=== PATIENT | female | born 1955 | race Caucasian/White ===

== ENCOUNTER 2019-01-17 10:37 | Day surgery (SDC) | payer OTHER ==
[2019-01-17 10:58] VITALS: TEMP 98.4
[2019-01-17] MEDS ORDERED: LACTATED RINGERS 1,000 ML IV ONE ×2 (11:14)
[2019-01-17] MEDS ORDERED: LIDOCAINE 1% 20 ML VIAL (10MG/ML) FOR IV START INTRADERMA ONE (11:14)
[2019-01-17] MEDS ORDERED: PROPOFOL 10 MG/ML 20 ML VIAL IV ONE (11:39)
[2019-01-17 12:16] VITALS: RESP 16
--- NOTE | 2019-01-17 12:23 | P.PCN ---
Date of Procedure: 01/17/19 Procedure(s) Performed: Procedure: Incomplete colonoscopy. Preoperative diagnosis: Screening for neoplasia. Postoperative diagnosis: Significant diverticular disease and extremely poor preparation made it not possible to complete the examination safely proximal to the distal or mid transverse colon. Preparation: HalfLytely prep. Sedation: Was provided by anesthesia. Brief clinical history: The patient is 63-year-old female who is scheduled for this evaluation for screening for neoplasia. She had a prior exam at age 49. The patient had had nonspecific abdominal symptoms in the past. She has no bleeding or anemia. Procedure: With the patient on her left lateral decubitus position and after in formed consent and adequate sedation, the perianal area was inspected and it did not show any fissures or. There were no masses felt on digital rectal examination. The Olympus CFH 190L video colonoscope was then inserted in the rectum in the usual fashion and advanced. The preparation was poor and there was significant diverticular disease, but I was able to advance the endoscope to the transverse colon, possibly mid to distal transverse. I was not able to advance the endoscope safely proximal to that because of the significant diverticular disease and the poor preparation. In the areas examined, I did not see any polyps or tumors or any obvious diverticulitis or strictures. I retroflexed the endoscope in the rectum before the endoscope was withdrawn. The patient tolerated the procedure well. Plan: I summarized the findings to the patient. I would consider repeat exam after a two-day preparation. She will discuss that with you.
[2019-01-17 12:40] VITALS: BP 133/79; PULSE 70
== END 2019-01-17 13:10 | disposition home or self-care (01) ==
LOC: ORWHC2ENDO 10:37
DX: Z12.11 Encounter for screening for malignant neoplasm of colon (principal); K57.30 Diverticulosis of large intestine without perforation or abscess without bleeding; Z79.890 Hormone replacement therapy; Z85.72 Personal history of non-Hodgkin lymphomas
CPT/HCPCS: J2704; G0121; 45378

== ENCOUNTER 2021-10-08 09:26 | Inpatient (IN) | payer OTHER, MEDICARE ==
[2021-10-08] MEDS ORDERED: HYDROmorphone 0.5 MG/0.5 ML SYRINGE IVP STA (09:39)
[2021-10-08] MEDS ORDERED: HYDROmorphone 1 MG/ML 1 ML SYRINGE IVP STA (10:20)
[2021-10-08 10:35] LABS: INR 0.9 (<1.2); Partial Thromboplastin Time 23.6 sec (22.0-30.0)
[2021-10-08 10:39] LABS: Basophils % (A) 0 %; Eosinophils # (A) 0.1 k/uL (0-0.7); Eosinophils % (A) 1 %; HCT 42.8 % (34.0-46.0); Lymphocytes # (A) 1.2 k/uL (1.0-4.8); Lymphocytes % (A) 20 %; MCH 29.2 pg (25.0-35.0); MCHC 32.6 g/dL (31.0-37.0); MCV 89.6 fL (80.0-100.0); Mean Platelet Volume 7.6; Monocytes # (A) 0.3 k/uL (0-1.0); Monocytes % (A) 6 %; Neutrophils # (A) 4.2 k/uL (1.3-7.7); Neutrophils % (A) 71 %; Platelet Count 203 k/uL (150-450); RBC 4.77 m/uL (3.80-5.40); RDW 13.7 % (11.5-15.5)
[2021-10-08 10:56] LABS: ALT 20 U/L (4-34); AST 26 U/L (14-36); African American GFR (CKD) >90 (>60 ml/min/1.73 sqM); Alkaline Phosphatase 71 U/L (38-126); Anion Gap 8 mmol/L; Blood Urea Nitrogen 14 mg/dL (7-17); Calcium 9.1 mg/dL (8.4-10.2); Carbon Dioxide 23 mmol/L (22-30); Chloride 108 mmol/L (98-107); Glucose 108 mg/dL (74-99); Non-African American GFR(CKD) >90 (>60 ml/min/1.73 sqM); Potassium 4.1 mmol/L (3.5-5.1); Sodium 139 mmol/L (137-145); Total Bilirubin 0.7 mg/dL (0.2-1.3); Total Protein 6.8 g/dL (6.3-8.2)
--- NOTE | 2021-10-08 10:58 | XR ---
EXAMINATION TYPE: XR chest 1V DATE OF EXAM: 10/08/2021 HISTORY: Shortness of breath. COMPARISON: None. TECHNIQUE: Single view of the chest is submitted. FINDINGS: Demonstrated are scattered senescent parenchymal change. There is no evidence for focal infiltrate. The heart is stable. Hilar and mediastinal structures are within normal limits. Degenerative changes are seen of the dorsal spine. IMPRESSION: 1. Chronic changes without evidence for acute pulmonary disease.
--- NOTE | 2021-10-08 10:59 | XR ---
EXAMINATION TYPE: XR Hip LT and AP Pelvis DATE OF EXAM: 10/08/2021 CLINICAL HISTORY: pain TECHNIQUE: AP and frogleg views of the left hip are obtained. Single view of the pelvis is also subm itted. COMPARISON: None. FINDINGS: Comminuted intratrochanteric fracture seen. Left hip joint space is well-preserved. No juan tional fractures seen within the [id number]. IMPRESSION: 1. Left-sided intratrochanteric fracture.
--- NOTE | 2021-10-08 11:08 | ED ---
General Adult HPI - General Chief complaint: Fall Stated complaint: Fall/Hip Pain Time Seen by Provider: 10/08/21 09:27 Source: patient, EMS, RN notes reviewed, old records reviewed Mode of arrival: EMS Limitations: no limitations - History of Present Illness Initial comments: 66-year-old female presents status post fall on the ice. Patient slipped fal ling onto her left hip. She had sudden and severe pain in this hip. She was unable to ambulate. There was no head neck or back trauma. No anticoagulation. Patient transported by EMS, she did receive IV fentanyl during transport which did minimally improve her pain. She has no chest pain or abdominal pain. - Related Data Home Medications Medication Instructions Recorded Confirmed Levothyroxine Sodium 100 mcg PO DAILY 01/17/19 10/08/21 Allergies Allergy/AdvReac Type Severity Reaction Status Date / Time No Known Allergies Allergy Verified 10/08/21 10:05 Review of Systems ROS Statement: Those systems with pertinent positive or pertinent negative responses have been documented in the HPI. ROS Other: All systems not noted in ROS Statement are negative. Past Medical History Past Medical History: Thyroid Disorder Additional Past Medical History / Comment(s): NON HODGKINS LYMPHOMA 2002, LOW BLOOD PRESSURE History of Any Multi-Drug Resistant Organisms: None Reported Additional Past Surgical History / Comment(s): FUAD TUMORS ON EAR DRUMS 1989, BREAST AUGMENTATION. Past Psychological History: No Psychological Hx Reported Smoking Status: Former smoker Past Alcohol Use History: None Reported Past Drug Use History: None Reported - Past Family History Mother Family Medical History: Cancer Father Family Medical History: Hypertension General Exam Limitations: no limitations General appearance: alert, in no apparent distress Head exam: Present: atraumatic, normocephalic Eye exam: Present: normal appearance, PERRL ENT exam: Present: normal exam Neck exam: Present: normal inspection, full ROM. Absent: tenderness Respiratory exam: Present: normal lung sounds bilaterally. Absent: respiratory distress, wheezes Cardiovascular Exam: Present: regular rate, normal rhythm GI/Abdominal exam: Present: soft. Absent: distended, tenderness, guarding Extremities exam: Present: tenderness (Decreased range of motion, tenderness to palpation left hip. Distal pulses are intact. No other tenderness on palpation of the bilateral lower extremities.). Absent: full ROM Neurological exam: Present: alert, oriented X3, CN II-XII intact Psychiatric exam: Present: normal affect, normal mood Skin exam: Present: warm, dry, intact. Absent: cyanosis, diaphoretic Course Vital Signs 10/08/21 10/08/21 09:32 09:34 Temperature 96.9 F L Pulse Rate 78 76 Respiratory 18 18 Rate Blood Pressure 116/79 116/79 O2 Sat by Pulse 97 96 Oximetry - Reevaluation(s) Reevaluation #1: 10/08/[address] Garza for orthopedic evaluation. Reevaluation #2: 10/08/21 11:08 Case discussed with tika Fajardo for advanced orthopedics. Medical Decision Making - Medical Decision Making 66-year-old female status post slip and fall with left hip pain. X-ray does show left IT fracture. Patient had requested advance orthopedics. I discussed case with nabor who is covering. They will admit with medicine on consult. EKG will be ordered for medical clearance. As well as chest x-ray, basic labs, and femur x-ray was requested. - Lab Data Result diagrams: 10/08/21 10:14 10/08/21 10:14 Lab Results 10/08/21 10/08/21 10/08/21 Range/Units 10:14 10:14 10:14 WBC 6.0 (3.8-10.6) k/uL RBC 4.77 (3.80-5.40) m/uL Hgb 14.0 (11.4-16.0) gm/dL Hct 42.8 (34.0-46.0) % MCV 89.6 (80.0-100.0) fL MCH 29.2 (25.0-35.0) pg MCHC 32.6 (31.0-37.0) g/dL RDW 13.7 (11.5-15.5) % Plt Count 203 (150-450) k/uL MPV 7.6 Neutrophils % 71 % Lymphocytes % 20 % Monocytes % 6 % Eosinophils % 1 % Basophils % 0 % Neutrophils # 4.2 (1.3-7.7) k/uL Lymphocytes # 1.2 (1.0-4.8) k/uL Monocytes # 0.3 (0-1.0) k/uL Eosinophils # 0.1 (0-0.7) k/uL Basophils # 0.0 (0-0.2) k/uL PT 10.0 (9.0-12.0) sec INR 0.9 (<1.2) APTT 23.6 (22.0-30.0) sec Sodium 139 (137-145) mmol/L Potassium 4.1 (3.5-5.1) mmol/L Chloride 108 H (98-107) mmol/L Carbon Dioxide 23 (22-30) mmol/L Anion Gap 8 mmol/L BUN 14 (7-17) mg/dL Creatinine 0.62 (0.52-1.04) mg/dL Est GFR (CKD-EPI)AfAm >90 (>60 ml/min/1.73 sqM) Est GFR (CKD-EPI)NonAf >90 (>60 ml/min/1.73 sqM) Glucose 108 H (74-99) mg/dL Calcium 9.1 (8.4-10.2) mg/dL Total Bilirubin 0.7 (0.2-1.3) mg/dL AST 26 (14-36) U/L ALT 20 (4-34) U/L Alkaline Phosphatase 71 (38-126) U/L Total Protein 6.8 (6.3-8.2) g/dL Albumin 4.0 (3.5-5.0) g/dL Disposition Clinical Impression: Fall, Fracture, intertrochanteric, left femur Disposition: ADMITTED IP TO THIS HOSP Condition: Stable Is patient prescribed a controlled substance at d/c from ED?: No Referrals: Vicky Mata MD [Primary Care Provider] - 1-2 days Decision to Admit Reason: Admit from EC Decision Date: 10/08/21 Decision Time: 11:26
[2021-10-08] MEDS ORDERED: HYDROmorphone 0.5 MG/0.5 ML SYRINGE IVP PRN (11:22)
[2021-10-08] MEDS ORDERED: NALOXONE 0.4 MG/ML 1 ML VIAL IV PRN (11:22)
[2021-10-08] MEDS: SODIUM CHLORIDE 0.9% 1,000 ML IV SCH (11:34)
--- NOTE | 2021-10-08 12:16 | XR ---
EXAMINATION TYPE: XR femur LT DATE OF EXAM: 10/08/2021 CLINICAL HISTORY: pain TECHNIQUE: Two views of the left femur are obtained. COMPARISON: None. FINDINGS: Intertrochanteric fracture noted. No additional fractures identified of the left femur. IMPRESSION: Intertrochanteric fracture left proximal femur.
--- NOTE | 2021-10-08 12:49 | P.HPOR ---
History of Present Illness H&P Date: 10/08/21 Chief Complaint: Left hip pain Patient is a 66-year-old female presenting to the emergency department this morning status post fall at home. Patient was walking outside and was about to take her dog to Park near her house when patient slipped on some ice in her driveway and fell landing on her left hip. Patient notes she had immediate left hip pain and was unable to get up off the ground. Patient notes that her neighbor found her about 15-20 minutes after patient had fallen and neighbor called EMS. EMS brought patient to hospital. Patient states she did not lose consciousness/hit her head. Patient denies any other injuries/areas of pain. Patient notes the only area of pain is the left hip as she points to the lateral portion left hip over the greater trochanter. Patient says there is some radiation pain down her leg. Patient rates pain as 10/10. Patient says she is not on any blood thinners. Patient denies any previous orthopedic surgical history. Patient does have a history of non-Hodgkin's lymphoma diagnosed in 2002. Patient denies chest pain, fever, shortness of breath, nausea, vomiting, change in vision, loss of bowel/bladder control. Past Medical History Past Medical History: Thyroid Disorder Additional Past Medical History / Comment(s): NON HODGKINS LYMPHOMA 2002, LOW BL OOD PRESSURE History of Any Multi-Drug Resistant Organisms: None Reported Additional Past Surgical History / Comment(s): FUAD TUMORS ON EAR DRUMS 1989, BREAST AUGMENTATION. Past Psychological History: No Psychological Hx Reported Smoking Status: Former smoker Past Alcohol Use History: None Reported Past Drug Use History: None Reported - Past Family History Mother Family Medical History: Cancer Father Family Medical History: Hypertension Medications and Allergies Home Medications Medication Instructions Recorded Confirmed Type Levothyroxine Sodium 100 mcg PO DAILY 01/17/19 10/08/21 History Allergies Allergy/AdvReac Type Severity Reaction Status Date / Time No Known Allergies Allergy Verified 10/08/21 10:05 Physical Examination Inspection: Left leg is shortened and externally rotated. There is no evidence of any ecchymosis, open fractures, nodules, significant erythema. Sensation: Sensation is equal, symmetric, bilaterally intact throughout the upper and lower extremities. Palpation: Significant tenderness to palpation along the left greater trochanter and lateral portion of the left hip. Nontender to palpation throughout rest exam Range of motion: Patient is able to plantarflex and dorsiflex left foot. Patient is unable flex/extend left hip and left knee due to severe pain. Full range of motion in bilateral upper extremities and right lower extremity Motor: Unable to perform exam on left leg due to patient's pain. 4+/5 in all other major motor groups Neurovascular status: Refill under 3 seconds bilaterally and digits of extremities. Radial pulses intact, 2+ bilaterally. DP pulses intact, bilaterally Special tests: Negative Homans bilaterally Results - Labs Labs: Abnormal Lab Results - Last 24 Hours (Table) 10/08/21 Range/Units 10:14 Chloride 108 H (98-107) mmol/L Glucose 108 H (74-99) mg/dL H & H 10/08/21 Range/Units 10:14 Hgb 14.0 (11.4-16.0) gm/dL Hct 42.8 (34.0-46.0) % Coagulation 10/08/21 Range/Units 10:14 INR 0.9 (<1.2) Result Diagrams: 10/08/21 10:14 10/08/21 10:14 Assessment and Plan Assessment: 1. Left hip intertrochanteric fracture status post fall Plan: 1. Left hip intertrochanteric fracture status post fall - patient seen at bedside this morning in significant amount of pain. Plan to [facility] patient [facility], , 10/09/2021 for left hip IM nail. Patient to remain nothing by mouth after midnight tonight. Hold thinners at this time. CBC; BMP; chest x-ray. Left femur x-ray negative for any femur fractures. Replicates findings opn left hip xray of left hip IT fracture 2. Appreciate medical management - patient does need medical clearance for surgery 3. Pain management - IV and oral pain meds 4. GI prophylaxis 5. DVT prophylaxis - with hold thinners at this time 6. PT/OT - nonweightbearing left leg Time with Patient: Less than 30
[2021-10-08] MEDS: HYDROmorphone 1 MG/ML 1 ML SYRINGE IVP PRN ×2 (14:23→21:28)
[2021-10-08] MEDS ORDERED: IPRATROPIUM-ALBUTEROL 3 ML NEB INHALATION PRN (14:26)
--- NOTE | 2021-10-08 14:26 | P.CONS ---
History of Present Illness - Reason for Consult Consult date: 10/08/21 medical clearance - Chief Complaint hip pain - History of Present Illness History of present illness 66 years old female patient of Dr. Velasco comes in after she slipped on ice while she was walking her dog. Patient landed on her left hip leading to significant pain. She was unable to get up off the ground. She was unattended for 15 minutes before she was seen by her neighbor who called EMS. Patien denies any chest pain, shortness of breath. She is pretty independent and lives by herself. She is recovering from a bronchitis that started in September and has been tested for COVID 5 times and was found to be negative. She denies any headache or dizziness. She denies losing consciousness or hitting her head. Patient has significant pain radiating down her leg. She denies any history of blood clots, DVT, PE, coronary artery disease previous stenting, stroke. Vitals were reviewed patient's afebrile pulse 78 respiratory rate 18 blood pressure 116/17 and oxygenating at 97% on room air labs are reviewed hemoglobin 14 platelet 203 INR 0.9 sodium 139 potassium 4.1 chloride 108 BUN 14 creatinine 0.6 glucose 108 COVID virus negative x-ray of the femur was obtained suggestive intertrochanteric fracture left proximal femur. Orthopedic surgeon Dr. Garza plans to take patient for left hip IM nail. EKG obtained normal sinus rhythm with no ST or T-wave changes ROS Constitutional: Denies chills, Denies fever, Denies lethargy, Denies malaise, Denies poor appetite, Denies weakness, Denies weight loss Eyes: denies decreased vision, denies diplopia, denies discharge, denies pain Ears: deny: decreased hearing Ears, nose, mouth and throat: Denies dental pain, Denies headache, Denies nasal discharge, Denies nose pain Cardiovascular: Denies chest pain, Denies decreased exercise tolerance, Denies edema, Denies high blood pressure, Denies irregular heart beat, Denies palpitations, Denies paroxysmal nocturnal dyspnea, Denies rapid heart beat, Denies shortness of breath Respiratory: Denies congestion, Denies cough, Denies cough with sputum, Denies dyspnea, Denies home oxygen, Denies wheezing Gastrointestinal: Denies abdominal pain, Denies change in bowel habits, Denies coffee ground emesis, Denies early satiety, Denies excessive gas, Denies heartburn, Denies hematemesis, Denies hematochezia, Denies loss of appetite, Denies nausea, Denies vomiting Genitourinary: Denies dysuria, Denies flank pain, Denies kidney stones, Denies menorrhagia, Denies urgency, Denies urinary frequency Musculoskeletal: ndorses gait dysfunction, endorses limitation of motion, e ndorses morning stiffness, Denies muscle cramps Integumentary: Denies rash, Denies wounds, Denies brittle nails, Denies change in hair/nails, Denies darkening of skin Neurological: Denies balance difficulties, Denies change in speech, Denies double vision, Denies gait dysfunction, Denies loss of vision, Denies motor disturbance, Denies numbness, Denies paralysis, Denies paresthesias, Denies seizures Psychiatric: Denies anxiety, Denies depression Endocrine: Denies excessive sweating, Denies excessive thirst, Denies high blood sugars, Denies palpitations Hematologic/Lymphatic: Denies easy bruising, Denies lymphadenopathy Social history Nonsmoker nondrinker Lives by herself Family history Mother had breast cancer Sister had breast cancer past at age of 50 Another sister has hypertension No children Physical exam - Constitutional General appearance: cooperative, no acute distress, obese - EENT Eyes: anicteric sclerae, PERRLA, normal appearance ENT: hearing grossly normal - Neck Neck: no lymphadenopathy, normal ROM, no other, no rigidity, no stridor, no thyromegaly - Respiratory Respiratory: bilateral: CTA, negative: diminished, dullness, rales, rhonchi - Cardiovascular Rhythm: regular Heart sounds: normal: S1, S2 Abnormal Heart Sounds: no systolic murmur, no diastolic murmur, no rub, no S3 Gallop, no S4 Gallop, no click, no other - Gastrointestinal General gastrointestinal: normal bowel sounds, soft - Integumentary Integumentary: no rash - Neurologic Neurologic: CNII-XII intact - Musculoskeletal Musculoskeletal: Left leg shortened externally rotated multiple varicose veins noted bilateral lower extremity tender to palpate in the left greater trochanter lateral portion of the left hip. Patient able to move her foot freely back range of motion limited secondary to pain. Neurovascular status intact - Psychiatric Psychiatric: A&O x's 3, appropriate affect Assessment and plan #1 left intertrochanteric fracture. Pain control with Dilaudid 0.5 every 3 radha rs. PTOT consult. Patient has 3.9% risk to undergo sudden myocardial infarctions, cardiac arrest. EKG reviewed is normal sinus rhythm no ST or T- wave changes noted. Patient is medically cleared to undergo surgery. Keep patient nothing by mouth #2 hypothyroidism continue Synthyroid at 100 g by mouth daily #3 DVT prophylaxis hold blood thinners at this point. #4 GI prophylaxis with Pepcid 20 mg daily #5 code status full code Thank you for the consult and I'll be happy to assist in patient's medical condition while patient is here Past Medical History Past Medical History: Thyroid Disorder Additional Past Medical History / Comment(s): NON HODGKINS LYMPHOMA 2002, LOW BLOOD PRESSURE History of Any Multi-Drug Resistant Organisms: None Reported Additional Past Surgical History / Comment(s): FUAD TUMORS ON EAR DRUMS 1989, BREAST AUGMENTATION. Past Anesthesia/Blood Transfusion Reactions: No Reported Reaction Past Psychological History: No Psychological Hx Reported Smoking Status: Former smoker Past Alcohol Use History: None Reported Past Drug Use History: None Reported - Past Family History Mother Family Medical History: Cancer Father Family Medical History: Hypertension Medications and Allergies Home Medications Medication Instructions Recorded Confirmed Type Levothyroxine Sodium 100 mcg PO DAILY 01/17/19 10/08/21 History Allergies Allergy/AdvReac Type Severity Reaction Status Date / Time No Known Allergies Allergy Verified 10/08/21 10:05 Physical Exam Vitals: Vital Signs Temp Pulse Resp BP Pulse Ox 10/08/21 11:30 72 18 132/83 100 10/08/21 09:34 76 18 116/79 96 10/08/21 09:32 96.9 F L 78 18 116/79 97 Intake and Output 10/07/21 10/08/21 10/08/21 22:59 06:59 14:59 Other: Weight 86.636 kg Results CBC & Chem 7: 10/08/21 10:14 10/08/21 10:14 Labs: Abnormal Lab Results - Last 24 Hours (Table) 10/08/21 Range/Units 10:14 Chloride 108 H (98-107) mmol/L Glucose 108 H (74-99) mg/dL
[2021-10-08] MEDS: HYDROcodone/APAP 7.5-325MG 1 EACH TAB PO PRN (17:52)
[2021-10-08] MEDS: FAMOTIDINE 20 MG TAB PO SCH (17:52)
[2021-10-09] MEDS: HYDROmorphone 1 MG/ML 1 ML SYRINGE IVP PRN ×4 (01:45→22:38)
[2021-10-09] MEDS: SODIUM CHLORIDE 0.9% 1,000 ML IV SCH ×2 (01:55→11:47)
[2021-10-09] MEDS: LEVOTHYROXINE 100 MCG TAB PO SCH (04:46)
[2021-10-09] MEDS: HYDROcodone/APAP 7.5-325MG 1 EACH TAB PO PRN ×2 (07:38→19:38)
[2021-10-09] MEDS: FAMOTIDINE 20 MG TAB PO SCH (07:41)
[2021-10-09] MEDS ORDERED: IV FLUID CONTINUATION 1,000 ML IV ONE (12:22)
[2021-10-09] MEDS ORDERED: ONDANSETRON 4 MG/2 ML VIAL ONE (12:37)
[2021-10-09] MEDS ORDERED: ONDANSETRON 4 MG/2 ML VIAL IVP ONE (12:41)
[2021-10-09] MEDS ORDERED: DEXAMETHASONE SOD PHOSPHATE 4 MG/ML 1 ML VIAL IVP ONE (12:42)
[2021-10-09] MEDS ORDERED: KETAMINE 10 MG/ML 20 ML VIAL ONE (13:13)
[2021-10-09] MEDS ORDERED: fentaNYL (PF) 50 MCG/ML 2 ML AMP ONE (13:13)
[2021-10-09] MEDS ORDERED: PHENYLEPHRINE-0.9% NACL SYG 1,000 MCG/10 ML SYRINGE ONE (13:13)
[2021-10-09] MEDS ORDERED: MIDAZOLAM 2 MG/2 ML VIAL ONE (13:13)
[2021-10-09] MEDS ORDERED: ceFAZolin 1,000 MG VIAL IVPB ONE (13:18)
[2021-10-09] MEDS ORDERED: ceFAZolin 1,000 MG in SODIUM CHLORIDE 0.9% 1,000 ML IRRIGATION ONE (13:54)
--- NOTE | 2021-10-09 14:15 | P.PN ---
Subjective Progress Note Date: 10/09/21 History of present illness 66-year-old female patient of Dr. Velasco comes in after she slipped on ice while she was walking her dog. Patient landed on her left hip leading to significant pain. She was unable to get up off the ground. She was unattended for 15 minutes before she was seen by her neighbor who called EMS. Patien denies any chest pain, shortness of breath. She is pretty independent and lives by herself. She is recovering from a bronchitis that started in September and has been tested for COVID 5 times and was found to be negative. She denies any hea dache or dizziness. She denies losing consciousness or hitting her head. Patient has significant pain radiating down her leg. She denies any history of blood clots, DVT, PE, coronary artery disease previous stenting, stroke. Vitals were reviewed patient's afebrile pulse 78 respiratory rate 18 blood pressure 116/17 and oxygenating at 97% on room air labs are reviewed hemoglobin 14 platelet 203 INR 0.9 sodium 139 potassium 4.1 chloride 108 BUN 14 creatinine 0.6 glucose 108 COVID virus negative x-ray of the femur was obtained suggestive intertrochanteric fracture left proximal femur. Orthopedic surgeon Dr. Garza plans to take patient for left hip IM nail. EKG obtained normal sinus rhythm with no ST or T-wave changes 2/3: Patient is gone for surgical intervention. ROS Constitutional: Denies chills, Denies fever, Denies lethargy, Denies malaise, Denies poor appetite, Denies weakness, Denies weight loss Eyes: denies decreased vision, denies diplopia, denies discharge, denies pain Ears: deny: decreased hearing Ears, nose, mouth and throat: Denies dental pain, Denies headache, Denies nasal discharge, Denies nose pain Cardiovascular: Denies chest pain, Denies decreased exercise tolerance, Denies edema, Denies high blood pressure, Denies irregular heart beat, Denies palpitations, Denies paroxysmal nocturnal dyspnea, Denies rapid heart beat, Denies shortness of breath Respiratory: Denies congestion, Denies cough, Denies cough with sputum, Denies dyspnea, Denies home oxygen, Denies wheezing Gastrointestinal: Denies abdominal pain, Denies change in bowel habits, Denies coffee ground emesis, Denies early satiety, Denies excessive gas, Denies heartburn, Denies hematemesis, Denies hematochezia, Denies loss of appetite, Denies nausea, Denies vomiting Genitourinary: Denies dysuria, Denies flank pain, Denies kidney stones, Denies menorrhagia, Denies urgency, Denies urinary frequency Musculoskeletal: ndorses gait dysfunction, endorses limitation of motion, endorses morning stiffness, Denies muscle cramps Integumentary: Denies rash, Denies wounds, Denies brittle nails, Denies change in hair/nails, Denies darkening of skin Neurological: Denies balance difficulties, Denies change in speech, Denies double vision, Denies gait dysfunction, Denies loss of vision, Denies motor disturbance, Denies numbness, Denies paralysis, Denies paresthesias, Denies seizures Psychiatric: Denies anxiety, Denies depression Endocrine: Denies excessive sweating, Denies excessive thirst, Denies high blood sugars, Denies palpitations Hematologic/Lymphatic: Denies easy bruising, Denies lymphadenopathy Physical exam - Constitutional General appearance: cooperative, no acute distress, obese - EENT Eyes: anicteric sclerae, PERRLA, normal appearance ENT: hearing grossly normal - Neck Neck: no lymphadenopathy, normal ROM, no other, no rigidity, no stridor, no thyromegaly - Respiratory Respiratory: bilateral: CTA, negative: diminished, dullness, rales, rhonchi - Cardiovascular Rhythm: regular Heart sounds: normal: S1, S2 Abnormal Heart Sounds: no systolic murmur, no diastolic murmur, no rub, no S3 Gallop, no S4 Gallop, no click, no other - Gastrointestinal General gastrointestinal: normal bowel sounds, soft - Integumentary Integumentary: no rash - Neurologic Neurologic: CNII-XII intact - Musculoskeletal Musculoskeletal: Left leg shortened externally rotated multiple varicose veins noted bilateral lower extremity tender to palpate in the left greater trochanter lateral portion of the left hip. Patient able to move her foot freely back range of motion limited secondary to pain. Neurovascular status intact - Psychiatric Psychiatric: A&O x's 3, appropriate affect Assessment and plan #1 left intertrochanteric fracture. Pain control with Dilaudid 0.5 every 3 hours. PTOT consult. Patient has 3.9% risk to undergo sudden myocardial infarctions, cardiac arrest. EKG reviewed is normal sinus rhythm no ST or T- wave changes noted. Patient is medically cleared to undergo surgery. Keep patient nothing by mouth #2 hypothyroidism continue Synthyroid at 100 g by mouth daily #3 DVT prophylaxis hold blood thinners at this point. #4 GI prophylaxis with Pepcid 20 mg daily #5 code status full code Thank you for the consult and I'll be happy to assist in patient's medical condition while patient is here Discharge Plan Home Impression and plan of care have been directed as dictated by the signing physician. Madonna Moore nurse practitioner acting as scribe for signing physician. Objective - Vital Signs Vital signs: Vital Signs Temp 97.9 F 10/09/21 01:54 Pulse 71 10/09/21 01:54 Resp 16 10/09/21 01:54 BP 130/77 10/09/21 01:54 Pulse Ox 97 10/09/21 01:54 Intake & Output 10/08/21 10/09/21 10/09/21 18:59 06:59 18:59 Intake Total 1200 1290 Output Total 750 Balance 1200 540 Weight 86.636 kg Intake: Intake, IV Titration 600 750 Amount Sodium Chloride 0.9% 1, 600 750 000 ml @ 75 mls/hr IV . [id number] [facility] Rx#:[id number] Oral 600 540 Output: Urine 750 Other: Voiding Method Indwelling Catheter - Labs CBC & Chem 7: 10/08/21 10:14 10/08/21 10:14 Labs: Abnormal Lab Results - Last 24 Hours (Table) 10/08/21 Range/Units 10:14 Chloride 108 H (98-107) mmol/L Glucose 108 H (74-99) mg/dL
[2021-10-09] MEDS ORDERED: LACTATED RINGERS 1,000 ML IV ONE (14:33)
--- NOTE | 2021-10-09 14:42 | XR ---
EXAMINATION TYPE: XR Hip Complete LT, FL guidance operating room DATE OF EXAM: 10/09/2021 COMPARISON: NONE HISTORY: Left hip nailing, fracture Fluoroscopy support supplied to the referring clinician. See dictated report from orthopedic surgery , 2 intraoperative images document the procedure, 60 seconds fluoroscopy time
[2021-10-09] MEDS ORDERED: HYDROmorphone 0.2 MG/1 ML SYRINGE IVP PRN (14:44)
[2021-10-09] MEDS ORDERED: HYDROmorphone 1 MG/ML 1 ML SYRINGE IVP PRN (14:44)
[2021-10-09] MEDS ORDERED: NALOXONE 0.4 MG/ML 1 ML VIAL IV PRN (14:44)
[2021-10-09] MEDS ORDERED: HYDROcodone/APAP 10-325MG 1 EACH TAB PO PRN (14:44)
--- NOTE | 2021-10-09 14:51 | P.OP ---
Date of Procedure: 10/09/21 Preoperative Diagnosis: Displaced left 4 part intertrochanteric femur fracture Postoperative Diagnosis: Same Procedure(s) Performed: Trochanteric intramedullary nailing left intertrochanteric femur fracture Implants: Arthrex 130 degree/short/11 mm trochanteric nail Anesthesia: spinal Surgeon: Beau Martins [employer] Man #1: Scotty Portillo Estimated Blood Loss (ml): 50 Pathology: none sent Condition: stable Disposition: PACU Indications for Procedure: The patient's 66-year-old female presents after a slip and fall injuring her left hip. Upon evaluation she is noted of a displaced four-part left intertrochanteric femur fracture. She underwent preoperative medical evaluation/clearance. A discussion the risks and benefits of operative intervention was made with patient. She opted to proceed. Operative risks to include infection, neurovascular injury, development of blood clots, possible development of nonunion/malunion, possible hardware failure need for subsequent procedures was discussed. Informed consent was obtained. Operative Findings: As below Description of Procedure: The patient was brought to the operating room, and after induction of spinal anesthesia was positioned supine on the fracture table. Bony prominences were appropriately padded. The fracture was reduced with longitudinal traction and internal rotation of the left leg. This was verified on the AP and lateral views with fluoroscopy. The left lower extremity was then prepped and draped in normal fashion. An 8 cm incision was then made starting proximal to greater trochanter. Skin and subcu tissues were divided sharply. The gluteus fe fascia was split in line with the skin incision. Blunt dissection was then made down to the level the greater trochanter. With the aid of fluoroscopy Sharp awl was placed into the tip of the greater trochanter. An intramedullary guidewire was then inserted down the canal. The distal canal was reamed up to 12 mm. Good distal chatter was noted. The proximal femur was then reamed up to 16.5 mm to level of the lesser trochanter. This is verified with fluoroscopy. An 11 mm/130 degree short trochanteric nail was gently inserted over the guidewire. The guidewire was then removed. A threaded guidepin was then inserted with the aid of fluoroscopy into the centercentral portion of the femoral head and neck to within 5 mm the articular surface on the AP and lateral views. A triple reamer was used to a depth of 100 mm. A 100 mm compression screw was inserted. Again this is done with the aid of fluoroscopy and taken to within 5 mm the articular surface on the AP and lateral views. Traction was removed from the leg. Compression was then performed with the outrigger jig. The compression screw was then locked into the nail. The static distal locking screw was placed utilizing the alignment guide with the fluoroscopy. Final fluoroscopic view showed adequate reduction of the fracture and placement of the implant on the AP and lateral views. The wounds were irrigated normal saline. The fascia was closed with running 0 Vicryl suture. Subcu tissues were reapproximated with interrupted 2-0 Vicryl sutures. The skin was reapproximated with chris. Sterile dressing was applied. The patient was then awoken from sedation and transferred to the recovery room in fair condition. Blood loss was estimated 50 mL. No complications were incurred. Sponge and needle counts were correct at the end of the case. Scotty CLOUD assisted to the major components the case to include positioning, exposure, implantation, and closure.
[2021-10-09] MEDS: HYDROmorphone 0.2 MG/1 ML SYRINGE IVP PRN (17:15)
[2021-10-09 18:00] LABS: Basophils % (A) 0 %; Eosinophils % (A) 0 %; HCT 40.8 % (34.0-46.0); Hypochromasia Slight; Lymphocytes # (A) 0.8 k/uL (1.0-4.8); Lymphocytes % (A) 10 %; MCH 29.5 pg (25.0-35.0); MCHC 31.9 g/dL (31.0-37.0); MCV 92.3 fL (80.0-100.0); Mean Platelet Volume 7.7; Monocytes # (A) 0.3 k/uL (0-1.0); Monocytes % (A) 4 %; Neutrophils # (A) 6.8 k/uL (1.3-7.7); Neutrophils % (A) 84 %; Platelet Count 166 k/uL (150-450); RBC 4.42 m/uL (3.80-5.40); RDW 13.7 % (11.5-15.5); WBC 8.1 k/uL (3.8-10.6)
[2021-10-09] MEDS: SENNOSIDES-DOCUSATE SODIUM 1 EACH TAB PO SCH (19:38)
[2021-10-10] MEDS: SODIUM CHLORIDE 0.9% 1,000 ML IV SCH ×2 (01:08→19:33)
[2021-10-10] MEDS: HYDROcodone/APAP 7.5-325MG 1 EACH TAB PO PRN ×2 (01:08→07:23)
[2021-10-10] MEDS: HYDROmorphone 1 MG/ML 1 ML SYRINGE IVP PRN ×3 (04:37→22:58)
[2021-10-10] MEDS: LEVOTHYROXINE 100 MCG TAB PO SCH (05:33)
[2021-10-10] MEDS: ENOXAPARIN 30 MG/0.3 ML SYRINGE SQ SCH (07:19)
[2021-10-10] MEDS: FAMOTIDINE 20 MG TAB PO SCH (07:19)
[2021-10-10] MEDS: HYDROmorphone 0.2 MG/1 ML SYRINGE IVP PRN (11:19)
[2021-10-10 11:43] LABS: Appearance,Urine Clear (Clear); Bacteria,Urine Rare /hpf; Bilirubin,Urine Negative (Negative); Blood,Urine Large (Negative); Color,Urine Light Red; Glucose,Urine (UA) Negative (Negative); Hyaline Casts,Urine 5 /lpf (0-2); Ketones,Urine 1+ (Negative); Leukocyte Esterase,Urine Moderate (Negative); Mucus,Urine Many /hpf; Nitrite,Urine Negative (Negative); PH, Urine 5.5 (5.0-8.0); Protein,Urine 1+ (Negative); RBC,Urine >182 /hpf (0-5); Specific Gravity,Urine 1.028 (1.001-1.035); Squamous Epithelial Cell,Urine 1 /hpf (0-4); Urobilinogen,Urine <2.0 mg/dL (<2.0); WBC,Urine 48 /hpf (0-5)
[2021-10-10] MEDS: HYDROcodone/APAP 5-325MG 1 EACH TAB PO PRN (13:38)
--- NOTE | 2021-10-10 14:00 | P.PN ---
Subjective Progress Note Date: 10/10/21 History of present illness 66-year-old female patient of Dr. Velasco comes in after she slipped on ice while she was walking her dog. Patient landed on her left hip leading to significant pain. She was unable to get up off the ground. She was unattended for 15 minutes before she was seen by her neighbor who called EMS. Patien denies any chest pain, shortness of breath. She is pretty independent and lives by herself. She is recovering from a bronchitis that started in September and has been tested for COVID 5 times and was found to be negative. She denies any hea dache or dizziness. She denies losing consciousness or hitting her head. Patient has significant pain radiating down her leg. She denies any history of blood clots, DVT, PE, coronary artery disease previous stenting, stroke. Vitals were reviewed patient's afebrile pulse 78 respiratory rate 18 blood pressure 116/17 and oxygenating at 97% on room air labs are reviewed hemoglobin 14 platelet 203 INR 0.9 sodium 139 potassium 4.1 chloride 108 BUN 14 creatinine 0.6 glucose 108 COVID virus negative x-ray of the femur was obtained suggestive intertrochanteric fracture left proximal femur. Orthopedic surgeon Dr. Garza plans to take patient for left hip IM nail. EKG obtained normal sinus rhythm with no ST or T-wave changes 2/3: Patient is gone for surgical intervention. 2/4: Yesterday, patient underwent trochanteric IM nailing left intertrochanteric femur fracture with Dr. Martins.Patient is afebrile, heart rate 88, blood pressure 121/71, pulse ox 95% on 2 L nasal cannula. Patient is complaining of pain. She still has Clarke catheter in place which is draining clear tanika urine. Patient states that she is concerned about blood in her urine she was scheduled for renal CAT scan to be done as an outpatient on October 29. Patient is requesting that this be done now but explained to the patient that this would not be covered by her insurance during this hospitalization. We will however order a urinalysis to evaluate for hematuria. Patient is complaining of some lumbar discomfort but not flank discomfort. Patient still has Clarke catheter in place which we expect this will be discontinued today. Patient states that she talked to orthopedics about staying in the hospital until Wednesday. Discharge plan is [facility]. If patient is not discharged tomorrow, this would take place on Wednesday. ROS Constitutional: Denies chills, Denies fever, Denies lethargy, Denies malaise, Denies poor appetite, Denies weakness, Denies weight loss Eyes: denies decreased vision, denies diplopia, denies discharge, denies pain Ears: deny: decreased hearing Ears, nose, mouth and throat: Denies dental pain, Denies headache, Denies nasal discharge, Denies nose pain Cardiovascular: Denies chest pain, Denies decreased exercise tolerance, Denies edema, Denies high blood pressure, Denies irregular heart beat, Denies palpitations, Denies paroxysmal nocturnal dyspnea, Denies rapid heart beat, Denies shortness of breath Respiratory: Denies congestion, Denies cough, Denies cough with sputum, Denies dyspnea, Denies home oxygen, Denies wheezing Gastrointestinal: Denies abdominal pain, Denies change in bowel habits, Denies coffee ground emesis, Denies early satiety, Denies excessive gas, Denies heartburn, Denies hematemesis, Denies hematochezia, Denies loss of appetite, Denies nausea, Denies vomiting Genitourinary: Denies dysuria, Denies flank pain, Denies kidney stones, Denies menorrhagia, Denies urgency, Denies urinary frequency. Patient is concern for hematuria Musculoskeletal: Endorses gait dysfunction, endorses limitation of motion, endorses morning stiffness, Denies muscle cramps Integumentary: Denies rash, Denies wounds, Denies brittle nails, Denies change in hair/nails, Denies darkening of skin Neurological: Denies balance difficulties, Denies change in speech, Denies double vision, Denies gait dysfunction, Denies loss of vision, Denies motor di sturbance, Denies numbness, Denies paralysis, Denies paresthesias, Denies seizures Psychiatric: Denies anxiety, Denies depression Endocrine: Denies excessive sweating, Denies excessive thirst, Denies high blood sugars, Denies palpitations Hematologic/Lymphatic: Denies easy bruising, Denies lymphadenopathy Physical exam - Constitutional General appearance: cooperative, no acute distress, obese - EENT Eyes: anicteric sclerae, PERRLA, normal appearance ENT: hearing grossly normal - Neck Neck: no lymphadenopathy, normal ROM, no other, no rigidity, no stridor, no thyromegaly - Respiratory Respiratory: bilateral: CTA, negative: diminished, dullness, rales, rhonchi - Cardiovascular Rhythm: regular Heart sounds: normal: S1, S2 Abnormal Heart Sounds: no systolic murmur, no diastolic murmur, no rub, no S3 Gallop, no S4 Gallop, no click, no other - Gastrointestinal General gastrointestinal: normal bowel sounds, soft Clarke catheter draining clear tanika urine, no hematuria - Integumentary Integumentary: no rash - Neurologic Neurologic: CNII-XII intact - Musculoskeletal Musculoskeletal: multiple varicose veins noted bilateral lower extremity, small dressing in place to the left hip. Patient able to move her foot freely back range of motion limited secondary to pain. Neurovascular status intact - Psychiatric Psychiatric: A&O x's 3, appropriate affect Assessment and plan #1 left intertrochanteric fracture status post IM nailing 2/[address] Martins. Pain control with Dilaudid 0.5 every 3 hours. PTOT consult. Patient has 3.9% risk to undergo sudden myocardial infarctions, cardiac arrest. EKG reviewed is normal sinus rhythm no ST or T-wave changes noted. #2 hypothyroidism continue Synthyroid at 100 g by mouth daily #3 DVT prophylaxis hold blood thinners at this point. #4 GI prophylaxis with Pepcid 20 mg daily #5 patient concern for hematuria. Urinalysis ordered. code status full code Thank you for the consult and I'll be happy to assist in patient's medical condition while patient is here Discharge Plan Subacute rehab at [facility] Impression and plan of care have been directed as dictated by the signing physician. Madonna Moore nurse practitioner acting as scribe for signing kortney [place]. Objective - Vital Signs Vital signs: Vital Signs Temp 99.1 F 10/10/21 07:24 Pulse 88 10/10/21 07:24 Resp 17 10/10/21 07:24 BP 121/71 10/10/21 07:24 Pulse Ox 95 10/10/21 08:29 Intake & Output 10/09/21 10/10/21 10/10/21 18:59 06:59 18:59 Intake Total 1287 1290 Output Total 650 450 Balance 637 840 Weight 86.636 kg Intake: IV 1051 Intake, IV Titration 750 Amount Sodium Chloride 0.9% 1, 750 000 ml @ 75 mls/hr IV . [id number] [facility] Rx#:[id number] Oral 236 540 Output: Urine 600 450 Estimated Blood Loss 50 Other: Voiding Method Indwelling Catheter Indwelling Catheter # Bowel Movements 0 - Labs CBC & Chem 7: 10/09/21 17:07 10/08/21 10:14 Labs: Abnormal Lab Results - Last 24 Hours (Table) 10/09/21 Range/Units 17:07 Lymphocytes # 0.8 L (1.0-4.8) k/uL
--- NOTE | 2021-10-10 16:21 | P.PN ---
Subjective Progress Note Date: 10/10/21 Principal diagnosis: Left hip intertrochanteric fracture status post fall Patient seen at bedside this morning resting comfortably sitting up in chair. Patient states she did get up at bedside and walk to the chair using walker. Patient says she is having some pain in her hip mostly right over incisions. Patient says she hasn't had bowel movement yet, however, patient says she has been passing gas. Patient says she has been using incentive spirometer. Patient denies chest pain, fever, shortness breath, nausea, vomiting, change in vision, loss of bladder control. Objective - Vital Signs Vital signs: Vital Signs Temp 99.1 F 10/10/21 07:24 Pulse 88 10/10/21 07:24 Resp 17 10/10/21 07:24 BP 121/71 10/10/21 07:24 Pulse Ox 95 10/10/21 08:29 Intake & Output 10/09/21 10/10/21 10/10/21 18:59 06:59 18:59 Intake Total 1287 1290 Output Total 650 450 Balance 637 840 Weight 86.636 kg Intake: IV 1051 Intake, IV Titration 750 Amount Sodium Chloride 0.9% 1, 750 000 ml @ 75 mls/hr IV . [id number] [facility] Rx#:[id number] Oral 236 540 Output: Urine 600 450 Estimated Blood Loss 50 Other: Voiding Method Indwelling Catheter Indwelling Catheter Indwelling Catheter # Bowel Movements 0 - Exam Left hip: Incision is clean, dry, and intact. The silver foam dressing is in good condition. There is minimal soft tissue swelling and ecchymosis surrounding the medial and lateral aspects of the incision. Calf is soft, no tenderness with palpation. Plantar flexion, dorsiflexion, EHL, FHL are intact. Sensory exam to light touch throughout the extremity is intact, dorsal pedis pulses 2+. - Labs CBC & Chem 7: 10/09/21 17:07 10/08/21 10:14 Labs: Abnormal Lab Results - Last 24 Hours (Table) 10/09/21 10/10/21 Range/Units 17:07 11:00 Lymphocytes # 0.8 L (1.0-4.8) k/uL Urine Protein 1+ H (Negative) Urine Ketones 1+ H (Negative) Urine Blood Large H (Negative) Ur Leukocyte Esterase Moderate H (Negative) Urine RBC >182 H (0-5) /hpf Urine WBC 48 H (0-5) /hpf Urine Bacteria Rare H (None) /hpf Hyaline Casts 5 H (0-2) /lpf Urine Mucus Many H (None) /hpf Assessment and Plan Assessment: 1. Left hip intertrochanteric fracture status post fall Postoperative day 1 status post left hip IT fracture Plan: 1. Left hip intertrochanteric fracture status post fall - left hip IM nail surgery performed yesterday, , 10/09/2021. Patient stable at bedside this morning. Plan to discharge to [facility] on Wednesday, Wednesday10/13/2021 2. Appreciate medical management 3. Pain management - [place] and Dilaudid 4. GI prophylaxis - senna 5. DVT prophylaxis - Lovenox 6. PT/OT - weightbearing as tolerated with walker 7. Encourage incentive spirometer use 8. Discharge planning - plan discharge to subacute rehab on 10/13/2021 Time with Patient: Less than 30
[2021-10-10] MEDS: SENNOSIDES-DOCUSATE SODIUM 1 EACH TAB PO SCH (20:55)
[2021-10-11] MEDS: HYDROcodone/APAP 5-325MG 1 EACH TAB PO PRN ×3 (02:06→22:04)
[2021-10-11] MEDS: LEVOTHYROXINE 100 MCG TAB PO SCH (06:25)
[2021-10-11] MEDS: ENOXAPARIN 30 MG/0.3 ML SYRINGE SQ SCH (09:06)
[2021-10-11] MEDS: FAMOTIDINE 20 MG TAB PO SCH (09:06)
[2021-10-11] MEDS: SODIUM CHLORIDE 0.9% 1,000 ML IV SCH ×2 (09:06→22:15)
--- NOTE | 2021-10-11 10:26 | P.PN ---
Subjective Progress Note Date: 10/11/21 Principal diagnosis: Left hip intertrochanteric fracture status post fall Patient seen at bedside this morning resting comfortably lying semirecumbent in bed. Patient seems somewhat sleepy this morning. Patient states she did get up at bedside yesterday and walk to the chair using walker. Patient says she is having some pain in her hip mostly right over incisions. Patient says she has a difficult time moving her left leg without assistance. Patient says she hasn't had bowel movement yet, however, patient says she has been passing gas. Patient says she has been using incentive spirometer. Patient denies chest pain, fever, shortness breath, nausea, vomiting, change in vision, loss of bladder control. Objective - Vital Signs Vital signs: Vital Signs Temp 98.7 F 10/11/21 07:18 Pulse 94 10/11/21 07:18 Resp 20 10/11/21 07:18 BP 132/70 10/11/21 07:18 Pulse Ox 93 L 10/11/21 07:18 Intake & Output 10/10/21 10/11/21 10/11/21 18:59 06:59 18:59 Output Total 900 850 Balance -900 -850 Output: Urine 900 850 Uretheral (Clarke) 350 Other: Voiding Method Indwelling Catheter Indwelling Catheter # Bowel Movements 0 0 - Exam Left hip: Incision is clean, dry, and intact. The silver foam dressing is in good condition. There is minimal soft tissue swelling and ecchymosis surrounding the medial and lateral aspects of the incision. Calf is soft, no tenderness with palpation. Plantar flexion, dorsiflexion, EHL, FHL are intact. Sensory exam to light touch throughout the extremity is intact, dorsal pedis pulses 2+. Silver foam dressings were replaced with new silver foam dressings over incisio ns. - Labs CBC & Chem 7: 10/09/21 17:07 10/08/21 10:14 Labs: Abnormal Lab Results - Last 24 Hours (Table) 10/10/21 Range/Units 11:00 Urine Protein 1+ H (Negative) Urine Ketones 1+ H (Negative) Urine Blood Large H (Negative) Ur Leukocyte Esterase Moderate H (Negative) Urine RBC >182 H (0-5) /hpf Urine WBC 48 H (0-5) /hpf Urine Bacteria Rare H (None) /hpf Hyaline Casts 5 H (0-2) /lpf Urine Mucus Many H (None) /hpf Assessment and Plan Assessment: 1. Left hip intertrochanteric fracture status post fall Postoperative day 2 status post left hip IT fracture Plan: 1. Left hip intertrochanteric fracture status post fall - left hip IM nail surgery performed , 10/09/2021. Patient stable at bedside this morning. Plan to discharge to [facility] on 10/13/2021 2. Appreciate medical management 3. Pain management - [place] and Dilaudid 4. GI prophylaxis - senna 5. DVT prophylaxis - Lovenox 6. PT/OT - weightbearing as tolerated with walker 7. Encourage incentive spirometer use 8. Discharge planning - plan discharge to subacute rehab on 10/13/2021 Time with Patient: Less than 30
--- NOTE | 2021-10-11 15:23 | P.PN ---
Subjective Progress Note Date: 10/11/21 History of present illness 66-year-old female patient of Dr. Velasco comes in after she slipped on ice while she was walking her dog. Patient landed on her left hip leading to significant pain. She was unable to get up off the ground. She was unattended for 15 minutes before she was seen by her neighbor who called EMS. Patien denies any chest pain, shortness of breath. She is pretty independent and lives by herself. She is recovering from a bronchitis that started in September and has been tested for COVID 5 times and was found to be negative. She denies any hea dache or dizziness. She denies losing consciousness or hitting her head. Patient has significant pain radiating down her leg. She denies any history of blood clots, DVT, PE, coronary artery disease previous stenting, stroke. Vitals were reviewed patient's afebrile pulse 78 respiratory rate 18 blood pressure 116/17 and oxygenating at 97% on room air labs are reviewed hemoglobin 14 platelet 203 INR 0.9 sodium 139 potassium 4.1 chloride 108 BUN 14 creatinine 0.6 glucose 108 COVID virus negative x-ray of the femur was obtained suggestive intertrochanteric fracture left proximal femur. Orthopedic surgeon Dr. Garza plans to take patient for left hip IM nail. EKG obtained normal sinus rhythm with no ST or T-wave changes 2/3: Patient is gone for surgical intervention. 2/4: Yesterday, patient underwent trochanteric IM nailing left intertrochanteric femur fracture with Dr. Martins.Patient is afebrile, heart rate 88, blood pressure 121/71, pulse ox 95% on 2 L nasal cannula. Patient is complaining of pain. She still has Clarke catheter in place which is draining clear tanika urine. Patient states that she is concerned about blood in her urine she was scheduled for renal CAT scan to be done as an outpatient on October 29. Patient is requesting that this be done now but explained to the patient that this would not be covered by her insurance during this hospitalization. We will however order a urinalysis to evaluate for hematuria. Patient is complaining of some lumbar discomfort but not flank discomfort. Patient still has Clarke catheter in place which we expect this will be discontinued today. Patient states that she talked to orthopedics about staying in the hospital until Wednesday. Discharge plan is [facility]. If patient is not discharged tomorrow, this would take place on Wednesday. 2/ patient complained of hematuria and has a computed tomography scan ordered as outpatient. Urinalysis ordered patient was noted to have UTI. Urinalysis to be sent for culture. Rocephin initiated 1 g every 24 hours patient likely had urine infection prior to getting an admission. Clarke catheter will be discontinued. ROS Constitutional: Denies chills, Denies fever, Denies lethargy, Denies malaise, Denies poor appetite, Denies weakness, Denies weight loss Eyes: denies decreased vision, denies diplopia, denies discharge, denies pain Ears: deny: decreased hearing Ears, nose, mouth and throat: Denies dental pain, Denies headache, Denies nasal discharge, Denies nose pain Cardiovascular: Denies chest pain, Denies decreased exercise tolerance, Denies edema, Denies high blood pressure, Denies irregular heart beat, Denies palpitations, Denies paroxysmal nocturnal dyspnea, Denies rapid heart beat, Denies shortness of breath Respiratory: Denies congestion, Denies cough, Denies cough with sputum, Denies dyspnea, Denies home oxygen, Denies wheezing Gastrointestinal: Denies abdominal pain, Denies change in bowel habits, Denies coffee ground emesis, Denies early satiety, Denies excessive gas, Denies heartburn, Denies hematemesis, Denies hematochezia, Denies loss of appetite, Denies nausea, Denies vomiting Genitourinary: Denies dysuria, Denies flank pain, Denies kidney stones, Denies menorrhagia, Denies urgency, Denies urinary frequency. Patient is concern for hematuria Musculoskeletal: Endorses gait dysfunction, endorses limitation of motion, endorses morning stiffness, Denies muscle cramps Integumentary: Denies rash, Denies wounds, Denies brittle nails, Denies change in hair/nails, Denies darkening of skin Neurological: Denies balance difficulties, Denies change in speech, Denies double vision, Denies gait dysfunction, Denies loss of vision, Denies motor disturbance, Denies numbness, Denies paralysis, Denies paresthesias, Denies s eizures Psychiatric: Denies anxiety, Denies depression Endocrine: Denies excessive sweating, Denies excessive thirst, Denies high blood sugars, Denies palpitations Hematologic/Lymphatic: Denies easy bruising, Denies lymphadenopathy Physical exam - Constitutional General appearance: cooperative, no acute distress, obese - EENT Eyes: anicteric sclerae, PERRLA, normal appearance ENT: hearing grossly normal - Neck Neck: no lymphadenopathy, normal ROM, no other, no rigidity, no stridor, no thyromegaly - Respiratory Respiratory: bilateral: CTA, negative: diminished, dullness, rales, rhonchi - Cardiovascular Rhythm: regular Heart sounds: normal: S1, S2 Abnormal Heart Sounds: no systolic murmur, no diastolic murmur, no rub, no S3 Gallop, no S4 Gallop, no click, no other - Gastrointestinal General gastrointestinal: normal bowel sounds, soft Clarke catheter draining clear tanika urine, no hematuria - Integumentary Integumentary: no rash - Neurologic Neurologic: CNII-XII intact - Musculoskeletal Musculoskeletal: multiple varicose veins noted bilateral lower extremity, small dressing in place to the left hip. Patient able to move her foot freely back range of motion limited secondary to pain. Neurovascular status intact - Psychiatric Psychiatric: A&O x's 3, appropriate affect Assessment and plan #1 left intertrochanteric fracture status post IM nailing 2/[address] Martins. Pain control with Dilaudid 0.5 every 3 hours. PTOT consult. Patient will benefit from inpatient versus subacute rehab #2 hypothyroidism continue Synthyroid at 100 g by mouth daily #3 hematuria present prior to admission with acute UTI Rocephin initiated at 1 g every 24 hours #4 GI prophylaxis with Pepcid 20 mg daily #5 DVT prophylaxis with Lovenox 30 subcu daily code status full code Discharge Plan Subacute rehab at [facility] Objective - Vital Signs Vital signs: Vital Signs Temp 98.4 F 10/11/21 14:00 Pulse 90 10/11/21 14:00 Resp 16 10/11/21 14:00 BP 111/66 10/11/21 14:00 Pulse Ox 95 10/11/21 14:00 Intake & Output 10/10/21 10/11/21 10/11/21 18:59 06:59 18:59 Output Total 900 850 Balance -900 -850 Output: Urine 900 850 Uretheral (Clarke) 350 Other: Voiding Method Indwelling Catheter Indwelling Catheter Indwelling Catheter # Bowel Movements 0 0 - Labs CBC & Chem 7: 10/09/21 17:07 10/08/21 10:14
[2021-10-11 17:42] LABS: Basophils % (A) 0 %; Eosinophils # (A) 0.1 k/uL (0-0.7); Eosinophils % (A) 2 %; HCT 31.9 % (34.0-46.0); HGB 10.3 gm/dL (11.4-16.0); Lymphocytes # (A) 1.1 k/uL (1.0-4.8); Lymphocytes % (A) 15 %; MCHC 32.2 g/dL (31.0-37.0); MCV 90.1 fL (80.0-100.0); Mean Platelet Volume 7.9; Monocytes # (A) 0.7 k/uL (0-1.0); Monocytes % (A) 9 %; Neutrophils # (A) 5.5 k/uL (1.3-7.7); Neutrophils % (A) 73 %; Platelet Count 133 k/uL (150-450); RBC 3.54 m/uL (3.80-5.40); RDW 13.8 % (11.5-15.5); WBC 7.6 k/uL (3.8-10.6)
[2021-10-11] MEDS: HYDROmorphone 1 MG/ML 1 ML SYRINGE IVP PRN (17:48)
[2021-10-11] MEDS: SENNOSIDES-DOCUSATE SODIUM 1 EACH TAB PO SCH (22:04)
[2021-10-12] MEDS: HYDROcodone/APAP 5-325MG 1 EACH TAB PO PRN (04:38)
[2021-10-12] MEDS: LEVOTHYROXINE 100 MCG TAB PO SCH (05:33)
[2021-10-12] MEDS: FAMOTIDINE 20 MG TAB PO SCH (07:53)
[2021-10-12] MEDS: ENOXAPARIN 30 MG/0.3 ML SYRINGE SQ SCH (07:53)
[2021-10-12] MEDS ORDERED: LACTULOSE 20 GM/30 ML CUP PO ONE (08:38)
[2021-10-12] MEDS ORDERED: MAGNESIUM HYDROXIDE 2,400 MG/10 ML CUP PO PRN (08:39)
[2021-10-12] MEDS: HYDROcodone/APAP 7.5-325MG 1 EACH TAB PO PRN ×2 (10:50→18:09)
[2021-10-12] MEDS: SODIUM CHLORIDE 0.9% 1,000 ML IV SCH (10:52)
--- NOTE | 2021-10-12 11:29 | P.PN ---
Subjective Progress Note Date: 10/12/21 Principal diagnosis: Left hip intertrochanteric fracture status post fall Patient seen at bedside this morning resting comfortably lying semirecumbent in bed. Patient seems somewhat sleepy this morning. Patient states she did get up at bedside yesterday and walk to the chair using walker. Patient says she is having some pain in her hip mostly right over incisions. Patient says she has a difficult time moving her left leg without assistance. Patient says she hasn't had bowel movement yet, however, patient says she has been passing gas. Patient says she has been using incentive spirometer. Patient denies chest pain, fever, shortness breath, nausea, vomiting, change in vision, loss of bladder control. Objective - Vital Signs Vital signs: Vital Signs Temp 98.3 F 10/12/21 07:37 Pulse 93 10/12/21 07:37 Resp 18 10/12/21 02:54 BP 110/65 10/12/21 07:37 Pulse Ox 95 10/12/21 07:37 Intake & Output 10/11/21 10/12/21 10/12/21 18:59 06:59 18:59 Intake Total 900 1800 Output Total 100 600 Balance 800 1200 Intake: IV 900 900 Sodium Chloride 0.9% 1, 900 900 000 ml @ 75 mls/hr IV . [id number] Rx#:[id number] Oral 900 Output: Urine 100 600 Uretheral (Clarke) 100 Other: Voiding Method Indwelling Catheter - Exam Left hip: Incision is clean, dry, and intact. The silver foam dressing is in good condition. There is minimal soft tissue swelling and ecchymosis surrounding the medial and lateral aspects of the incision. Calf is soft, no tenderness with palpation. Plantar flexion, dorsiflexion, EHL, FHL are intact. Sensory exam to light touch throughout the extremity is intact, dorsal pedis pulses 2+. - Labs CBC & Chem 7: 10/11/21 17:21 10/08/21 10:14 Labs: Abnormal Lab Results - Last 24 Hours (Table) 10/11/21 Range/Units 17:21 RBC 3.54 L (3.80-5.40) m/uL Hgb 10.3 L (11.4-16.0) gm/dL Hct 31.9 L (34.0-46.0) % Plt Count 133 L (150-450) k/uL Microbiology - Last 24 Hours (Table) 10/11/21 17:40 Urine Culture - Preliminary Urine,Catheterized Assessment and Plan Assessment: 1. Left hip intertrochanteric fracture status post fall Postoperative day 3 status post left hip IT fracture Plan: 1. Left hip intertrochanteric fracture status post fall - left hip IM nail surgery performed , 10/09/2021. Patient stable at bedside this morning. Plan to discharge to [facility] on 10/13/2021 2. Appreciate medical management 3. Pain management - [place] and Dilaudid 4. GI prophylaxis - senna 5. DVT prophylaxis - Lovenox 6. PT/OT - weightbearing as tolerated with walker 7. Encourage incentive spirometer use 8. Discharge planning - plan discharge to subacute rehab on 10/13/2021 Time with Patient: Less than 30
--- NOTE | 2021-10-12 14:30 | P.PN ---
Subjective Progress Note Date: 10/12/21 History of present illness 66-year-old female patient of Dr. Velasco comes in after she slipped on ice while she was walking her dog. Patient landed on her left hip leading to significant pain. She was unable to get up off the ground. She was unattended for 15 minutes before she was seen by her neighbor who called EMS. Patien denies any chest pain, shortness of breath. She is pretty independent and lives by herself. She is recovering from a bronchitis that started in September and has been tested for COVID 5 times and was found to be negative. She denies any hea dache or dizziness. She denies losing consciousness or hitting her head. Patient has significant pain radiating down her leg. She denies any history of blood clots, DVT, PE, coronary artery disease previous stenting, stroke. Vitals were reviewed patient's afebrile pulse 78 respiratory rate 18 blood pressure 116/17 and oxygenating at 97% on room air labs are reviewed hemoglobin 14 platelet 203 INR 0.9 sodium 139 potassium 4.1 chloride 108 BUN 14 creatinine 0.6 glucose 108 COVID virus negative x-ray of the femur was obtained suggestive intertrochanteric fracture left proximal femur. Orthopedic surgeon Dr. Garza plans to take patient for left hip IM nail. EKG obtained normal sinus rhythm with no ST or T-wave changes 2/3: Patient is gone for surgical intervention. 2/4: Yesterday, patient underwent trochanteric IM nailing left intertrochanteric femur fracture with Dr. Martins.Patient is afebrile, heart rate 88, blood pressure 121/71, pulse ox 95% on 2 L nasal cannula. Patient is complaining of pain. She still has Clarke catheter in place which is draining clear tanika urine. Patient states that she is concerned about blood in her urine she was scheduled for renal CAT scan to be done as an outpatient on October 29. Patient is requesting that this be done now but explained to the patient that this would not be covered by her insurance during this hospitalization. We will however order a urinalysis to evaluate for hematuria. Patient is complaining of some lumbar discomfort but not flank discomfort. Patient still has Clarke catheter in place which we expect this will be discontinued today. Patient states that she talked to orthopedics about staying in the hospital until Wednesday. Discharge plan is [facility]. If patient is not discharged tomorrow, this would take place on Wednesday. 10/11 patient complained of hematuria and has a computed tomography scan ordered as outpatient. Urinalysis ordered patient was noted to have UTI. Urinalysis to be sent for culture. Rocephin initiated 1 g every 24 hours patient likely had urine infection prior to getting an admission. Clarke catheter will be discontinued. 10/12 patient examined bedside. Urine appears dark. Patient denies any chest pain or abdominal pain. She has not had bowel movement for the past 5 days. He was given 1 dose of lactulose, senna with no bowel movement. Vitals otherwise stable. Hemoglobin has dropped to 10.3 from 13 urine culture is pending. Continue Rocephin for 3 days with plan to discontinue tomorrow. Patient is a possible discharge to rehab ROS Constitutional: Denies chills, Denies fever, Denies lethargy, Denies malaise, Denies poor appetite, Denies weakness, Denies weight loss Eyes: denies decreased vision, denies diplopia, denies discharge, denies pain Ears: deny: decreased hearing Ears, nose, mouth and throat: Denies dental pain, Denies headache, Denies nasal discharge, Denies nose pain Cardiovascular: Denies chest pain, Denies decreased exercise tolerance, Denies edema, Denies high blood pressure, Denies irregular heart beat, Denies palpitations, Denies paroxysmal nocturnal dyspnea, Denies rapid heart beat, Denies shortness of breath Respiratory: Denies congestion, Denies cough, Denies cough with sputum, Denies dyspnea, Denies home oxygen, Denies wheezing Gastrointestinal: Denies abdominal pain, Denies change in bowel habits, Denies coffee ground emesis, Denies early satiety, Denies excessive gas, Denies heartburn, Denies hematemesis, Denies hematochezia, Denies loss of appetite, Denies nausea, Denies vomiting Genitourinary: Denies dysuria, Denies flank pain, Denies kidney stones, Denies menorrhagia, Denies urgency, Denies urinary frequency. Patient is concern for hematuria Musculoskeletal: Endorses gait dysfunction, endorses limitation of motion, endorses morning stiffness, Denies muscle cramps Integumentary: Denies rash, Denies wounds, Denies brittle nails, Denies change in hair/nails, Denies darkening of skin Neurological: Denies balance difficulties, Denies change in speech, Denies double vision, Denies gait dysfunction, Denies loss of vision, Denies motor disturbance, Denies numbness, Denies paralysis, Denies paresthesias, Denies seizures Psychiatric: Denies anxiety, Denies depression Endocrine: Denies excessive sweating, Denies excessive thirst, Denies high blood sugars, Denies palpitations Hematologic/Lymphatic: Denies easy bruising, Denies lymphadenopathy Physical exam - Constitutional General appearance: cooperative, no acute distress, patient is sitting in the back - EENT Eyes: anicteric sclerae, PERRLA, normal appearance ENT: hearing grossly normal - Neck Neck: no lymphadenopathy, normal ROM, no other, no rigidity, no stridor, no thyromegaly - Respiratory Respiratory: bilateral: CTA, negative: diminished, dullness, rales, rhonchi - Cardiovascular Rhythm: regular Heart sounds: normal: S1, S2 Abnormal Heart Sounds: no systolic murmur, no diastolic murmur, no rub, no S3 Gallop, no S4 Gallop, no click, no other - Gastrointestinal General gastrointestinal: normal bowel sounds, soft Clarke catheter draining clear tanika urine, no hematuria - Integumentary Integumentary: no rash - Neurologic Neurologic: CNII-XII intact - Musculoskeletal Musculoskeletal: multiple varicose veins noted bilateral lower extremity, small dressing in place to the left hip. Range of motion improved Assessment and plan #1 left intertrochanteric fracture status post IM nailing 2/[address] Martins. Pain control with Dilaudid 0.5 every 3 hours. PTOT consult. and rehab on Wednesday #2 hypothyroidism continue Synthyroid at 100 g by mouth daily #3 hematuria present prior to admission with acute UTI Rocephin initiated at 1 g every 24 hours #4 GI prophylaxis with Pepcid 20 mg daily #5 DVT prophylaxis with Lovenox 30 subcu daily code status full code Discharge Plan Subacute rehab at [facility] Objective - Vital Signs Vital signs: Vital Signs Temp 98.3 F 10/12/21 07:37 Pulse 93 10/12/21 07:37 Resp 18 10/12/21 02:54 BP 110/65 10/12/21 07:37 Pulse Ox 95 10/12/21 07:37 Intake & Output 10/11/21 10/12/21 10/12/21 18:59 06:59 18:59 Intake Total 900 1800 Output Total 100 600 Balance 800 1200 Intake: IV 900 900 Sodium Chloride 0.9% 1, 900 900 000 ml @ 75 mls/hr IV . [id number] COUNTS INCLUDE 234 BEDS AT THE [facility] Rx#:[id number] Oral 900 Output: Urine 100 600 Uretheral (Clarke) 100 Other: Voiding Method Indwelling Catheter - Labs CBC & Chem 7: 10/11/21 17:21 10/08/21 10:14 Labs: Abnormal Lab Results - Last 24 Hours (Table) 10/11/21 Range/Units 17:21 RBC 3.54 L (3.80-5.40) m/uL Hgb 10.3 L (11.4-16.0) gm/dL Hct 31.9 L (34.0-46.0) % Plt Count 133 L (150-450) k/uL Microbiology - Last 24 Hours (Table) 10/11/21 17:40 Urine Culture - Preliminary Urine,Catheterized
[2021-10-12] MEDS: polyethylene glycoL 3350 17 GM POWD.PACK PO SCH (18:09)
[2021-10-12] MEDS: SENNOSIDES-DOCUSATE SODIUM 1 EACH TAB PO SCH (20:49)
[2021-10-13] MEDS: HYDROcodone/APAP 7.5-325MG 1 EACH TAB PO PRN (00:23)
[2021-10-13 04:07] VITALS: BP 113/68; PULSE 77; RESP 18; TEMP 98.2
[2021-10-13] MEDS: LEVOTHYROXINE 100 MCG TAB PO SCH (05:45)
[2021-10-13] MEDS: ENOXAPARIN 30 MG/0.3 ML SYRINGE SQ SCH (08:24)
[2021-10-13] MEDS: FAMOTIDINE 20 MG TAB PO SCH (08:24)
[2021-10-13] MEDS: polyethylene glycoL 3350 17 GM POWD.PACK PO SCH (08:24)
[2021-10-13] MEDS ORDERED: traMADol 50 MG TAB PO SCH (09:00)
[2021-10-13] MEDS ORDERED: ACETAMINOPHEN TAB 325 MG TAB PO PRN (09:07)
--- NOTE | 2021-10-13 10:06 | P.DS ---
Providers Date of admission: 10/08/21 11:23 Expected date of discharge: 10/13/21 Attending physician: Beau Martins Consults: 10/08/21 11:23 Consult Physician Routine Consulting Provider: Vicky Mata Consult Reason/Comments: Med management Do you want consulting provider notified?: Yes Primary care physician: Vicky Mata Hospital Course: Date of admission: 10/08/2021 Date of discharge: 10/13/2021 Admission diagnosis: Displaced left 4 part intertrochanteric femur fracture Discharge diagnosis: Same Attending physician: Dr. Martins Surgical procedures: Trochanteric intramedullary nailing left intertrochanteric femur fractu Brief history: Patient is a 66-year-old female with a history of displaced left 4 part intertrochanteric femur fracture status post fall. At this point patient has failed conservative treatment measures and has opted to proceed with a elective trochanteric intramedullary nailing left intertrochanteric femur fracture. Hospital course: Details of patient's surgery can be found in operative report. Patient tolerated the procedure well and was subsequently transported to orthopedic floor. Patient's orthopeidc and medical care was provided daily. Patient had daily laboratory tests performed for evaluation of overall blood counts. Patient had daily physical therapy to include strengthening range of motion as well as education with walker ambulation. Patient was treated with Lovenox for their postoperative DVT prophylaxis during their inpatient stay. Patient was noted to have a relatively uneventful postoperative course. Patient reported satisfactory pain control with oral pain medications by postoperative day 4. Patient showed satisfactory progress with physical therapy. Patient moved steadily through the program and had no difficulty meeting the goals by postoperative day 4. Given patient's otherwise satisfactory course and having met physical therapy goals, plan is to discharge patient to rehab on postopera tive day 4. Discharge condition/disposition: Patient will be discharged to rehab in stable condition. Discharge medications: Instructions are given on resumption of patient's normal daily medications per primary care recommendation, in addition patient will be prescribed tramadol 50 mg; Tylenol 650 mg; Lovenox; senna. Discharge instructions: 1. Wound care and infection precautions, keep incision dry and covered while showering, no lotions, creams, moisturizers. No soaking, tubs, pools, hottubs. Do not scrub over the incision. 2. Weight-bear as tolerated with walker / cane until follow-up. 3. Ice and elevate when necessary. Do not exceed 20 minutes per hour with ice pack.. 4. physical therapy 5. Pain meds and anticoagulants per prescription. 6. Pain medication has potential to cause constipation. Increase oral fluid and fiber intake. Contact primary care provider if you have not had a bowel movement within 48 hours after discharge 7. No anti-inflammatory medication until discussed at first post operative visit, this including Motrin, Aleve, Mobic, Diclofenac. 8. Follow up in office at 2 weeks postop with Hossein Saavedra PA-C / Scotty Portillo PA-C 9. Follow up with your primary care doctor 7-10 days after discharge. 10. Contact [facility] with any questions, . Keep incision clean, dry, intact. While showering, cover incision with Saran wrap. Follow up in office in 2 weeks Medications: tramadol 50 mg; Tylenol 650 mg; Lovenox; senna Assessment: Displaced left 4 part intertrochanteric femur fracture Procedures: Trochanteric intramedullary nailing left intertrochanteric femur fracture Patient Condition at Discharge: Good Plan - Discharge Summary Discharge Rx Participant: Yes New Discharge Prescriptions: New Enoxaparin [Lovenox] 30 mg SQ DAILY #21 each polyethylene glycoL 3350 [Miralax] 17 gm PO DAILY packet Famotidine [Pepcid] 20 mg PO DAILY tab Sennosides-Docusate Sodium [Senokot-S] 2 each PO HS tab Acetaminophen Tab [Tylenol] 650 mg PO Q6H #24 tab traMADol HCl [Ultram] 50 mg PO Q6H PRN #21 tab PRN Reason: Pain Magnesium Hydroxide [Milk of Magnesia Concentrate] 1,200 mg PO DAILY PRN ml PRN Reason: Constipation Continue Levothyroxine Sodium 100 mcg PO DAILY Discharge Medication List Levothyroxine Sodium 100 mcg PO DAILY 01/17/19 [History] Acetaminophen Tab [Tylenol] 650 mg PO Q6H #24 tab 10/13/21 [Rx] Enoxaparin [Lovenox] 30 mg SQ DAILY #21 each 10/13/21 [Rx] Famotidine [Pepcid] 20 mg PO DAILY tab 10/13/21 [Rx] Magnesium Hydroxide [Milk of Magnesia Concentrate] 1,200 mg PO DAILY PRN ml 10/13/21 [Rx] Sennosides-Docusate Sodium [Senokot-S] 2 each PO HS tab 10/13/21 [Rx] polyethylene glycoL 3350 [Miralax] 17 gm PO DAILY packet 10/13/21 [Rx] traMADol HCl [Ultram] 50 mg PO Q6H PRN #21 tab 10/13/21 [Rx] Follow up Appointment(s)/Referral(s): Vicky Mata MD [Primary Care Provider] - 1 Week (at [facility]) Scotty Portillo PAC [PHYSICIAN SEXUAL ASSAULT RESPONSE COORDINATOR] - 2 Weeks [facility], [NON-STAFF] - As Needed Activity/Diet/Wound Care/Special Instructions: Discharge instructions: 1. Wound care and infection precautions, keep incision dry and covered while showering, no lotions, creams, moisturizers. No soaking, tubs, pools, hottubs. Do not scrub over the incision. 2. Weight-bear as tolerated with walker / cane until follow-up. 3. Ice and elevate when necessary. Do not exceed 20 minutes per hour with ice pack.. 4. physical therapy 5. Pain meds and anticoagulants per prescription. 6. Pain medication has potential to cause constipation. Increase oral fluid and fiber intake. Contact primary care provider if you have not had a bowel movement within 48 hours after discharge 7. No anti-inflammatory medication until discussed at first post operative visit, this including Motrin, Aleve, Mobic, Diclofenac. 8. Follow up in office at 2 weeks postop with Hossein Saavedra PA-C / Scotty Portillo PA-C 9. Follow up with your primary care doctor 7-10 days after discharge. 10. Contact [facility] with any questions, . Keep incision clean, dry, intact. While showering, cover incision with Saran wrap. Follow up in office in 2 weeks Medications: tramadol 50 mg; Tylenol 650 mg; Lovenox; senna Discharge Disposition: TRANSFER TO SNF/ECF
--- NOTE | 2021-10-13 10:07 | P.PN ---
Subjective Progress Note Date: 10/13/21 Principal diagnosis: Left hip intertrochanteric fracture status post fall Patient seen at bedside this morning resting comfortably sitting up in chair at bedside. Patient states she did get up at bedside yesterday and walk to the chair using walker. Patient says she is having some pain in her hip mostly right over incisions. Patient says she has a difficult time moving her left leg without assistance. Patient says she hasn't had bowel movement yet, however, patient says she has been passing gas. Patient says she has been using incentive spirometer. Patient denies chest pain, fever, shortness breath, nausea, vomiting, change in vision, loss of bladder control. Objective - Vital Signs Vital signs: Vital Signs Temp 98.2 F 10/13/21 02:00 Pulse 77 10/13/21 08:15 Resp 18 10/13/21 08:15 BP 113/68 10/13/21 02:00 Pulse Ox 96 10/13/21 02:00 Intake & Output 10/12/21 10/13/21 10/13/21 18:59 06:59 18:59 Output Total 600 1250 Balance -600 -1250 Output: Urine 600 1250 Other: Voiding Method External Catheter Bedside Commode # Bowel Movements 0 - Exam Left hip: Incision is clean, dry, and intact. The silver foam dressing is in good condition. There is minimal soft tissue swelling and ecchymosis surrounding the medial and lateral aspects of the incision. Calf is soft, no tenderness with palpation. Plantar flexion, dorsiflexion, EHL, FHL are intact. Sensory exam to light touch throughout the extremity is intact, dorsal pedis pulses 2+. - Labs CBC & Chem 7: 10/11/21 17:21 10/08/21 10:14 Labs: Microbiology - Last 24 Hours (Table) 10/11/21 17:40 Urine Culture - Final Urine,Catheterized Assessment and Plan Assessment: 1. Left hip intertrochanteric fracture status post fall Postoperative day 4 status post left hip IT fracture Plan: 1. Left hip intertrochanteric fracture status post fall - left hip IM nail surgery performed , 10/10/2021. Patient stable at bedside this morning. Discharge to [facility] today, 10/13/2021 2. Appreciate medical management 3. Pain management - going to rehab with Tramadol and Tylenol 650 4. GI prophylaxis - senna 5. DVT prophylaxis - Lovenox 6. PT/OT - weightbearing as tolerated with walker 7. Encourage incentive spirometer use 8. Discharge planning - Discharge to subacute rehab today, 10/13/2021 Time with Patient: Less than 30
--- NOTE | 2021-10-13 13:57 | P.PN ---
Subjective Progress Note Date: 10/13/21 History of present illness 66-year-old female patient of Dr. Velasco comes in after she slipped on ice while she was walking her dog. Patient landed on her left hip leading to significant pain. She was unable to get up off the ground. She was unattended for 15 minutes before she was seen by her neighbor who called EMS. Patien denies any chest pain, shortness of breath. She is pretty independent and lives by herself. She is recovering from a bronchitis that started in September and has been tested for COVID 5 times and was found to be negative. She denies any hea dache or dizziness. She denies losing consciousness or hitting her head. Patient has significant pain radiating down her leg. She denies any history of blood clots, DVT, PE, coronary artery disease previous stenting, stroke. Vitals were reviewed patient's afebrile pulse 78 respiratory rate 18 blood pressure 116/17 and oxygenating at 97% on room air labs are reviewed hemoglobin 14 platelet 203 INR 0.9 sodium 139 potassium 4.1 chloride 108 BUN 14 creatinine 0.6 glucose 108 COVID virus negative x-ray of the femur was obtained suggestive intertrochanteric fracture left proximal femur. Orthopedic surgeon Dr. Garza plans to take patient for left hip IM nail. EKG obtained normal sinus rhythm with no ST or T-wave changes 2/3: Patient is gone for surgical intervention. 2/4: Yesterday, patient underwent trochanteric IM nailing left intertrochanteric femur fracture with Dr. Martins.Patient is afebrile, heart rate 88, blood pressure 121/71, pulse ox 95% on 2 L nasal cannula. Patient is complaining of pain. She still has Clarke catheter in place which is draining clear tanika urine. Patient states that she is concerned about blood in her urine she was scheduled for renal CAT scan to be done as an outpatient on October 29. Patient is requesting that this be done now but explained to the patient that this would not be covered by her insurance during this hospitalization. We will however order a urinalysis to evaluate for hematuria. Patient is complaining of some lumbar discomfort but not flank discomfort. Patient still has Clarke catheter in place which we expect this will be discontinued today. Patient states that she talked to orthopedics about staying in the hospital until Wednesday. Discharge plan is [facility]. If patient is not discharged tomorrow, this would take place on Wednesday. 10/11 patient complained of hematuria and has a computed tomography scan ordered as outpatient. Urinalysis ordered patient was noted to have UTI. Urinalysis to be sent for culture. Rocephin initiated 1 g every 24 hours patient likely had urine infection prior to getting an admission. Clarke catheter will be discontinued. 10/12 patient examined bedside. Urine appears dark. Patient denies any chest pain or abdominal pain. She has not had bowel movement for the past 5 days. He was given 1 dose of lactulose, senna with no bowel movement. Vitals otherwise stable. Hemoglobin has dropped to 10.3 from 13 urine culture is pending. Continue Rocephin for 3 days with plan to discontinue tomorrow. Patient is a possible discharge to rehab 10/13: Patient is complaining of significant constipation but would like to wait until she gets to the retirement to address. She is currently on Senokot and MiraLAX and milk of magnesia. Orthopedics is planning for discharge today to subacute rehab. Medication reconciliation has been reviewed and patient is cleared for discharge from medicine. Patient has been afebrile, heart rate 77, blood pressure 113/60, pulse ox 96% on 2 L nasal cannula. Urine culture was finalized with no growth after 18 hours. ROS Constitutional: Denies chills, Denies fever, Denies lethargy, Denies malaise, Denies poor appetite, Denies weakness, Denies weight loss Eyes: denies decreased vision, denies diplopia, denies discharge, denies pain Ears: deny: decreased hearing Ears, nose, mouth and throat: Denies dental pain, Denies headache, Denies nasal discharge, Denies nose pain Cardiovascular: Denies chest pain, Denies decreased exercise tolerance, Denies edema, Denies high blood pressure, Denies irregular heart beat, Denies palpitations, Denies paroxysmal nocturnal dyspnea, Denies rapid heart beat, Denies shortness of breath Respiratory: Denies congestion, Denies cough, Denies cough with sputum, Denies dyspnea, Denies home oxygen, Denies wheezing Gastrointestinal: Denies abdominal pain, Denies change in bowel habits, Denies coffee ground emesis, Denies early satiety, Denies excessive gas, Denies heartburn, Denies hematemesis, Denies hematochezia, Denies loss of appetite, Denies nausea, Denies vomiting Genitourinary: Denies dysuria, Denies flank pain, Denies kidney stones, Denies menorrhagia, Denies urgency, Denies urinary frequency. Patient is concerned for hematuria Musculoskeletal: Endorses gait dysfunction, endorses limitation of motion, endorses morning stiffness, Denies muscle cramps Integumentary: Denies rash, Denies wounds, Denies brittle nails, Denies change in hair/nails, Denies darkening of skin Neurological: Denies balance difficulties, Denies change in speech, Denies double vision, Denies gait dysfunction, Denies loss of vision, Denies motor disturbance, Denies numbness, Denies paralysis, Denies paresthesias, Denies seizures Psychiatric: Denies anxiety, Denies depression Endocrine: Denies excessive sweating, Denies excessive thirst, Denies high blood sugars, Denies palpitations Hematologic/Lymphatic: Denies easy bruising, Denies lymphadenopathy Physical exam - Constitutional General appearance: cooperative, no acute distress, patient is sitting in the back - EENT Eyes: anicteric sclerae, PERRLA, normal appearance ENT: hearing grossly normal - Neck Neck: no lymphadenopathy, normal ROM, no other, no rigidity, no stridor, no thyromegaly - Respiratory Respiratory: bilateral: CTA, negative: diminished, dullness, rales, rhonchi - Cardiovascular Rhythm: regular Heart sounds: normal: S1, S2 Abnormal Heart Sounds: no systolic murmur, no diastolic murmur, no rub, no S3 Gallop, no S4 Gallop, no click, no other - Gastrointestinal General gastrointestinal: normal bowel sounds, soft Clarke catheter draining clear tanika urine, no hematuria - Integumentary Integumentary: no rash - Neurologic Neurologic: CNII-XII intact - Musculoskeletal Musculoskeletal: multiple varicose veins noted bilateral lower extremity, small dressing in place to the left hip. Range of motion improved Assessment and plan #1 left intertrochanteric fracture status post IM nailing 2/[address] Martins. Pain control. PTOT consult. Plan is for discharge today. Medication reconciliation has been reviewed. #2 hypothyroidism continue Synthyroid at 100 g by mouth daily #3 hematuria present prior to admission with acute UTI has been ruled out. No need for further antibiotics. #4 GI prophylaxis with Pepcid 20 mg daily #5 DVT prophylaxis with Lovenox 30 subcu daily code status full code Discharge Plan Subacute rehab at [facility] Impression and plan of care have been directed as dictated by the signing physician. Madonna Moore nurse practitioner acting as scribe for signing physician. Objective - Vital Signs Vital signs: Vital Signs Temp 98.2 F 10/13/21 02:00 Pulse 77 10/13/21 02:00 Resp 18 10/13/21 02:00 BP 113/68 10/13/21 02:00 Pulse Ox 96 10/13/21 02:00 Intake & Output 10/12/21 10/13/21 10/13/21 18:59 06:59 18:59 Output Total 600 1250 Balance -600 -1250 Output: Urine 600 1250 Other: Voiding Method External Catheter # Bowel Movements 0 - Labs CBC & Chem 7: 10/11/21 17:21 10/08/21 10:14 Labs: Microbiology - Last 24 Hours (Table) 10/11/21 17:40 Urine Culture - Final Urine,Catheterized
== END 2021-10-13 14:36 | DRG 482 ==
LOC: EC 09:26 → 4SSUR 11:23
PROVIDERS: ADMIT Orthopaedic Surgery; ATTEND Orthopaedic Surgery
PROC: 0QS706Z Reposition Left Upper Femur with Intramedullary Internal Fixation Device, Open Approach (ICD-10-PCS; principal; 2021-10-09 13:00)
DX: S72.142A Displaced intertrochanteric fracture of left femur, initial encounter for closed fracture (principal); E03.9 Hypothyroidism, unspecified; Z20.822 Contact with and (suspected) exposure to COVID-19; R31.9 Hematuria, unspecified; I83.91 Asymptomatic varicose veins of right lower extremity; K59.00 Constipation, unspecified; Z79.890 Hormone replacement therapy; Z87.891 Personal history of nicotine dependence; Z85.72 Personal history of non-Hodgkin lymphomas; Z87.2 Personal history of diseases of the skin and subcutaneous tissue; Z86.69 Personal history of other diseases of the nervous system and sense organs; Z98.890 Other specified postprocedural states; W00.0XXA Fall on same level due to ice and snow, initial encounter; Y93.01 Activity, walking, marching and hiking; Y92.008 Other place in unspecified non-institutional (private) residence as the place of occurrence of the external cause; Z82.49 Family history of ischemic heart disease and other diseases of the circulatory system; Z80.3 Family history of malignant neoplasm of breast
CPT/HCPCS: 36415; 71045; 73502; 80053; 81001; 85025; 85610; 85730; 87086; 87635; 93005; 94760; 96374; 99285

== ENCOUNTER 2021-11-16 18:06 | Emergency (ER) | payer OTHER, MEDICARE ==
[2021-11-16 18:19] VITALS: BP 119/68; PULSE 104; RESP 18; TEMP 98.2
[2021-11-16] MEDS ORDERED: SODIUM CHLORIDE 0.9% 1,000 ML IV STA (18:32)
--- NOTE | 2021-11-16 18:39 | ED ---
General Adult HPI - General Chief complaint: Abdominal Pain Stated complaint: Constipation Time Seen by Provider: 11/16/21 18:25 Source: patient, RN notes reviewed Mode of arrival: wheelchair Limitations: no limitations - History of Present Illness Initial comments: This is a pleasant 66-year-old female who states that she had left hip fracture in early October and subsequently was sent to rehabilitation. Patient states that she was put on pain medicines for this. Mainly taking this but 3 days ago developed constipation. Patient states she has not had a good bowel movement in 3 days. She is had no nausea or vomiting but states she has not been eating because she was afraid that it would increase the intermittent abdominal cramping that she is having. Patient states she tried an enema last night and had very minimal return. Patient states that passing gas causes pain. Patient did use a suppository as well today. Patient has had no fever or chills. No nausea or vomiting. Patient has had a urinary tract infection since being in rehab. She states she's been on 3 weeks of antibiotics. No diarrhea. No fever. No shortness breath or chest pain. He also took [id number] laxative. No headache, no fever or chills, no changes in vision or hearing, no sore throat or difficulty with speech, no neck pain, no chest pain or shortness of breath, no nausea or vomiting, no changes in urination or bowel movements, no numbness or tingling, no extremity pain, no skin rashes or lesions. - Related Data Home Medications Medication Instructions Recorded Confirmed Levothyroxine Sodium 100 mcg PO DAILY 01/17/19 10/08/21 Previous Rx's Medication Instructions Recorded Acetaminophen Tab [Tylenol] 650 mg PO Q6H #24 tab 10/13/21 Enoxaparin [Lovenox] 30 mg SQ DAILY #21 each 10/13/21 Famotidine [Pepcid] 20 mg PO DAILY tab 10/13/21 Magnesium Hydroxide [Milk of 1,200 mg PO DAILY PRN ml 10/13/21 Magnesia Concentrate] Sennosides-Docusate Sodium 2 each PO HS tab 10/13/21 [Senokot-S] polyethylene glycoL 3350 [Miralax] 17 gm PO DAILY packet 10/13/21 traMADol HCl [Ultram] 50 mg PO Q6H PRN #21 tab 10/13/21 Docusate [Colace] 100 mg PO DAILY #30 capsule 11/16/21 Magnesium Citrate 0.5 bottle PO Q6H #296 ml 11/16/21 Allergies Allergy/AdvReac Type Severity Reaction Status Date / Time No Known Allergies Allergy Verified 10/09/21 12:35 Review of Systems ROS Statement: Those systems with pertinent positive or pertinent negative responses have been documented in the HPI. ROS Other: All systems not noted in ROS Statement are negative. Past Medical History Past Medical History: Thyroid Disorder Additional Past Medical History / Comment(s): NON HODGKINS LYMPHOMA 2002, LOW BLOOD PRESSURE History of Any Multi-Drug Resistant Organisms: None Reported Additional Past Surgical History / Comment(s): FUAD TUMORS ON EAR DRUMS 1989, BREAST AUGMENTATION. Past Anesthesia/Blood Transfusion Reactions: No Reported Reaction Past Psychological History: No Psychological Hx Reported Smoking Status: Former smoker Past Alcohol Use History: None Reported Past Drug Use History: None Reported - Past Family History Mother Family Medical History: Cancer Father Family Medical History: Hypertension General Exam - General Exam Comments Initial Comments: The parents 66-year-old female in no distress. Patient does not appear to be ill or toxic. Limitations: no limitations General appearance: alert, in no apparent distress Head exam: Present: atraumatic, normocephalic, normal inspection Eye exam: Present: normal appearance, PERRL, EOMI. Absent: scleral icterus, conjunctival injection, periorbital swelling ENT exam: Present: normal exam, mucous membranes moist Neck exam: Present: normal inspection, full ROM. Absent: tenderness, meningismus, lymphadenopathy Respiratory exam: Present: normal lung sounds bilaterally. Absent: respiratory distress, wheezes, rales, rhonchi, stridor Cardiovascular Exam: Present: regular rate, normal rhythm, normal heart sounds. Absent: systolic murmur, diastolic murmur, rubs, gallop, clicks GI/Abdominal exam: Present: soft, normal bowel sounds, other (No significant tenderness to palpation. Abdomen is soft.). Absent: distended, tenderness, guarding, rebound, rigid Extremities exam: Present: normal inspection, full ROM, normal capillary refill. Absent: tenderness, pedal edema, joint swelling, calf tenderness Back exam: Present: normal inspection Neurological exam: Present: alert, oriented X3, CN II-XII intact Psychiatric exam: Present: normal affect, normal mood Skin exam: Present: warm, dry, intact, normal color. Absent: rash Course Vital Signs 11/16/21 18:16 Temperature 98.2 F Pulse Rate 104 H Respiratory 18 Rate Blood Pressure 119/68 O2 Sat by Pulse 98 Oximetry - Reevaluation(s) Reevaluation #1: 11/16/21 21:24 Medical record is reviewed Symptoms are essentially unchanged here. Patient is informed of results and questions answered Patient in no distress Medical Decision Making - Medical Decision Making Patient only had minimal return with the enema. I did perform a rectal examination which was chaperoned. Patient has some soft stool in the rectal vault. However disimpaction was not possible due to the consistency of the stool. We'll treat the patient with magnesium citrate one half bottle every 6 hours 4. We did try one more enema with Fleet's prior to the patient going home. Patient had no nausea or vomiting. No evidence of infectious process. Blood work was essentially negative. X-rays did not show an obstructive pattern. Conservative therapy discussed with the patient. The case was discussed in detail with ED attending physician. Presentation, findings, treatment plan discussed in detail. Follow-up with your regular physician as directed. Return to the ER immediately if any symptoms worsen, new symptoms arise, or any other problems develop. - Lab Data Result diagrams: 11/16/21 18:53 11/16/21 18:53 Lab Results 11/16/21 11/16/21 Range/Units 18:53 18:53 WBC 6.8 (3.8-10.6) k/uL RBC 4.51 (3.80-5.40) m/uL Hgb 13.0 (11.4-16.0) gm/dL Hct 40.0 (34.0-46.0) % MCV 88.8 (80.0-100.0) fL MCH 29.0 (25.0-35.0) pg MCHC 32.6 (31.0-37.0) g/dL RDW 14.2 (11.5-15.5) % Plt Count 264 (150-450) k/uL MPV 8.0 Neutrophils % 65 % Lymphocytes % 22 % Monocytes % 8 % Eosinophils % 1 % Basophils % 1 % Neutrophils # 4.4 (1.3-7.7) k/uL Lymphocytes # 1.5 (1.0-4.8) k/uL Monocytes # 0.6 (0-1.0) k/uL Eosinophils # 0.1 (0-0.7) k/uL Basophils # 0.1 (0-0.2) k/uL Sodium 137 (137-145) mmol/L Potassium 3.6 (3.5-5.1) mmol/L Chloride 105 (98-107) mmol/L Carbon Dioxide 20 L (22-30) mmol/L Anion Gap 12 mmol/L BUN 13 (7-17) mg/dL Creatinine 0.51 L (0.52-1.04) mg/dL Est GFR (CKD-EPI)AfAm >90 (>60 ml/min/1.73 sqM) Est GFR (CKD-EPI)NonAf >90 (>60 ml/min/1.73 sqM) Glucose 85 (74-99) mg/dL Calcium 9.2 (8.4-10.2) mg/dL Total Bilirubin 0.8 (0.2-1.3) mg/dL AST 20 (14-36) U/L ALT 9 (4-34) U/L Alkaline Phosphatase 92 (38-126) U/L Total Protein 6.9 (6.3-8.2) g/dL Albumin 4.0 (3.5-5.0) g/dL Lipase 87 (23-300) U/L Disposition Clinical Impression: Constipation, Abdominal cramping Disposition: HOME SELF-CARE Condition: Stable Instructions (If sedation given, give patient instructions): Constipation (ED) Additional Instructions: Drink plenty of fluids. 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 Drink one half bottle every 6 hours. Up with your regular doctor tomorrow. Return to the ER if any new symptoms arise or if any symptoms worsen. Return for any other problems as well. Hold the tramadol or any other narcotic pain medication. Prescriptions: Docusate [Colace] 100 mg PO DAILY #30 capsule Magnesium Citrate 0.5 bottle PO Q6H #296 ml Is patient prescribed a controlled substance at d/c from ED?: No Referrals: Vicky Mata MD [Primary Care Provider] - 1-2 days Time of Disposition: 21:25
--- NOTE | 2021-11-16 19:11 | XR ---
EXAMINATION TYPE: XR abdomen acute w cxr DATE OF EXAM: 11/16/2021 COMPARISON: NONE HISTORY: Obstipation. TECHNIQUE: 4 views FINDINGS: Heart and mediastinum are normal. Lungs are clear of infiltrate. There is bilateral breast implants with calcification. There is no pleural effusion. There is no sign of intestinal obstruction or pneumoperitoneum. There is left hip nailing noted. The re are no pathologic calcifications over the kidneys. There is no evidence of abdominal mass. There i s some retained fecal material in the rectum that measures 8 cm. IMPRESSION: Retained fecal material in the rectum. Otherwise nonacute abdomen. No cardiopulmonary dis ease.
[2021-11-16 19:37] LABS: Basophils # (A) 0.1 k/uL (0-0.2); Basophils % (A) 1 %; Eosinophils # (A) 0.1 k/uL (0-0.7); Eosinophils % (A) 1 %; Lymphocytes # (A) 1.5 k/uL (1.0-4.8); Lymphocytes % (A) 22 %; MCHC 32.6 g/dL (31.0-37.0); MCV 88.8 fL (80.0-100.0); Monocytes # (A) 0.6 k/uL (0-1.0); Monocytes % (A) 8 %; Neutrophils # (A) 4.4 k/uL (1.3-7.7); Neutrophils % (A) 65 %; Platelet Count 264 k/uL (150-450); RBC 4.51 m/uL (3.80-5.40); RDW 14.2 % (11.5-15.5); WBC 6.8 k/uL (3.8-10.6)
[2021-11-16 19:46] LABS: ALT 9 U/L (4-34); AST 20 U/L (14-36); African American GFR (CKD) >90 (>60 ml/min/1.73 sqM); Alkaline Phosphatase 92 U/L (38-126); Anion Gap 12 mmol/L; Blood Urea Nitrogen 13 mg/dL (7-17); Calcium 9.2 mg/dL (8.4-10.2); Carbon Dioxide 20 mmol/L (22-30); Chloride 105 mmol/L (98-107); Glucose 85 mg/dL (74-99); Lipase 87 U/L (23-300); Non-African American GFR(CKD) >90 (>60 ml/min/1.73 sqM); Potassium 3.6 mmol/L (3.5-5.1); Sodium 137 mmol/L (137-145); Total Bilirubin 0.8 mg/dL (0.2-1.3); Total Protein 6.9 g/dL (6.3-8.2)
[2021-11-16] MEDS ORDERED: MAGNESIUM CITRATE 296 ML BOTTLE PO ONE (21:05)
[2021-11-16] MEDS ORDERED: NA PHOS,M-B/NA PHOS,DI-BA 133 ML ENEMA RECTAL STA (21:22)
== END 2021-11-16 22:01 | disposition home or self-care (01) ==
LOC: EC 18:06
DX: K59.00 Constipation, unspecified (principal); R10.9 Unspecified abdominal pain; E07.9 Disorder of thyroid, unspecified; Z87.891 Personal history of nicotine dependence; Z79.890 Hormone replacement therapy
CPT/HCPCS: 74022; 80053; 83690; 85025; 96360; 99284

== ENCOUNTER → 2022-03-19 | Outpatient (CLI) | payer OTHER ==
--- NOTE | 2022-03-20 14:05 | MM ---
Reason for Exam: Additional evaluation requested from prior study. Clinical finding. Last mammogram was performed 8 year(s) and 8 month(s) ago. Patient History: Menarche at age 10. Patient has no children. Postmenopausal. Other cancer, age 47. Previous chemotherapy at age 49. 2013, MG stereo VAD BX RT on the Right side. 1978, Bilateral Implants. Sister had breast cancer, age 45. Mother had breast cancer, age 55. Risk Values: Digna 5 year model risk: 7.5%. NCI Lifetime model risk: 23.6%. Prior Study Comparison: 07/20/2013 Bilateral Diagnostic Mammogram, [facility]. Tissue Density: There are scattered fibroglandular densities. Findings: Mammogram Calcified breast implants are noted. Right-sided microclip seen. Benign-appearing calcifications bilaterally. No evidence for mass or distortion.. Technique: Method: Whole Breast Handheld. Findings: No solid or cystic masses seen. Overall Assessment: Negative, BI-RAD 1 Assessment: MG 3D diag mammo imp w/cad FUAD - Bilateral: Incomplete: need additional imaging evaluation, BI-RAD 0 - Right. Management: Screening Mammogram of both breasts in 1 year. A clinical breast exam by your physician is recommended on an annual basis and results should be correlated with mammographic findings. Results were given to the patient verbally at the time of exam. Electronically signed and approved by: Feliberto Lopez M.D. Radiologis
== END | disposition home or self-care (01) ==
LOC: RADMAMWWP 14:25
PROVIDERS: ATTEND Family Medicine
DX: T85.41XA Breakdown (mechanical) of breast prosthesis and implant, initial encounter (principal); Z80.3 Family history of malignant neoplasm of breast; Z78.0 Asymptomatic menopausal state
CPT/HCPCS: 77062; 77066

== ENCOUNTER → 2023-07-19 | Outpatient (CLI) | payer OTHER | END | disposition home or self-care (01) | LOC: LABPAT 15:23 | PROVIDERS: ATTEND Orthopaedic Surgery | DX: Z01.812 Encounter for preprocedural laboratory examination (principal); M17.11 Unilateral primary osteoarthritis, right knee; Z22.322 Carrier or suspected carrier of Methicillin resistant Staphylococcus aureus | CPT/HCPCS: 87070 ==

== ENCOUNTER 2023-08-03 08:33 | Day surgery (SDC) | payer OTHER ==
[2023-07-30 12:46] VITALS: BMI 26.6
--- NOTE | 2023-08-02 08:49 | P.HPOR ---
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 She is having pain with weightbearing activities diffusely. She has intermittent giving way and grinding. She's tried injections along with medications with only temporary partial relief. She notes daily pain significantly limits her. Review of Systems Negative except as in HPI Past Medical History Past Medical History: Osteoarthritis (OA), Thyroid Disorder Additional Past Medical History / Comment(s): NON HODGKINS LYMPHOMA 2002 W/CHEMO., LOW BLOOD PRESSURE, HX OF PLEURISY LEFT LUNG (2021), COMANCHE, PAIN RIGHT KNEE. History of Any Multi-Drug Resistant Organisms: None Reported Past Surgical History: Breast Surgery, Orthopedic Surgery Additional Past Surgical History / Comment(s): FUAD TUMORS ON EAR DRUMS 1989., GANGLION CYST LEFT WRIST. BREAST AUGMENTATION., LEFT HIP FX REPAIR. 10/08/21 Past Anesthesia/Blood Transfusion Reactions: No Reported Reaction Past Psychological History: Anxiety Smoking Status: Former smoker Past Alcohol Use History: Rare Additional Past Alcohol Use History / Comment(s): QUIT SMOKING BEFORE AGE 34 YEARS OF AGE. Past Drug Use History: None Reported - Past Family History Mother Family Medical History: Cancer Additional Family Medical History / Comment(s): BREAST CANCER Father Family Medical History: Hypertension Sister(s) Family Medical History: Cancer Additional Family Medical History / Comment(s): BREAST CANCER Medications and Allergies Home Medications Medication Instructions Recorded Confirmed Type Levothyroxine Sodium 100 mcg PO DAILY 01/17/19 07/30/23 History Potassium Gluconate [Potassium 500 mg PO DAILY 07/30/23 07/30/23 History (2.5 MEQ = 600 MG)] Vitamin C, D & Zinc 1 dose PO DAILY 07/30/23 History Allergies Allergy/AdvReac Type Severity Reaction Status Date / Time hydrocodone [From [place]] AdvReac Unknown SEVERE Verified 07/30/23 11:44 CONSTIPATION Physical Examination - Knee right Appearance: effusion Effusion grade: grade 1 Valgus alignment in stance: 5 degrees Tenderness with palpation: anterior, lateral Pain: throughout ROM Gait: limping ROM: extension: -10 degrees ROM: flexion: 120 degrees Crepitus with motion: Yes Strength: extension: 5/5 Strength: flexion: 5/5 Meniscal tests: lateral meniscal tests: positive, lateral joint line pain: positive Results The patient is a well-developed well-nourished female approximately 5 foot 9, 18 6 pounds of mesomorphic habitus. HEENT exam is nonfocal, neck is supple. She has painless passive motion of the right hip. Straight leg raise is negative. She is tender about the lateral aspect of the right knee. Collaterals are stable, Carmelita was negative, Robin's is equivocal. She has genu valgum alignment. Her distal neurovascular appears intact in the right lower extremity. - Diagnostic results Knee x-ray: image reviewed (3 views of the right knee obtain the office show severe lateral and patellofemoral compartment osteoarthrosis.) Assessment and Plan Assessment: Right knee severe lateral and patellofemoral compartment osteoarthrosis Plan: I talked to the patient regarding her condition and treatment options. At this point she is quite limited having both pain and mechanical symptoms related to her right knee osteoarthrosis despite previous conservative measures. After a thorough discussion she opts to proceed with surgery. We will plan to proceed with right total knee arthroplasty. Risks and benefits were discussed at length in layman's terms. We will institute DVT prophylaxis postoperatively.
[~2023-08-03 08:33] MED LIST: ACETAMINOPHEN TAB 500 MG TAB PO PRN; DEXAMETHASONE SOD PHOSPHATE 4 MG/ML 1 ML VIAL IV ONE; MELOXICAM 7.5 MG TAB PO PRN; MIDAZOLAM 2 MG/2 ML VIAL IV PRN; ONDANSETRON 4 MG/2 ML VIAL IVP ONE; TRANEXAMIC 1,000 MG/100ML-NACL 1,000 MG in SALINE 1 100ML.BAG IVPB PRN; fentaNYL (PF) 50 MCG/ML 2 ML AMP IV PRN
[2023-08-03 09:33] VITALS: RESP 16
[2023-08-03] MEDS: LACTATED RINGERS 1,000 ML IV SCH (09:44)
[2023-08-03] MEDS ORDERED: fentaNYL (PF) 50 MCG/ML 2 ML AMP IVP ONE (09:45)
[2023-08-03] MEDS ORDERED: MIDAZOLAM 2 MG/2 ML VIAL IVP ONE (09:45)
--- NOTE | 2023-08-03 10:11 | P.ANPRN ---
Procedure Note - Anesthesia - Nerve Block Performed Right Adductor Canal Infusion Time Out Performed: Yes Date of Procedure: 08/03/23 Procedure Start Time: 09:45 Procedure Stop Time: 09:54 Location of Patient: PreOp Indication: Acute Post-Operative Pain, Requested by Surgeon Sedation Type: Sedate with meaningful contact maintained Preparation: Sterile Prep, Sterile Dressing Position: Supine Catheter: Indwelling Needle Types: Pajunk Needle Gauge: 18 Ultrasound used to visualize needle placement: Yes Ultrasound used to observe medication spread: Yes Injectate: 0.5% Ropivacaine (see comment for volume) (15 ml + 15 ml NS + 4 mg dexamethasone) Blood Aspirated: No Pain Paresthesia on Injection Noted: No Resistance on Injection: Normal Image Stored and Saved: Yes Events: Uneventful and Well Tolerated
[2023-08-03] MEDS ORDERED: ROPIVACAINE 1,100 MG, SODIUM CHLORIDE 0.9% 500 ML 330 ML, EMPTY PAIN BALL 1 EACH MISCELLANE PRN ×2 (10:12)
--- NOTE | 2023-08-03 10:12 | P.ANPRN ---
Procedure Note - Anesthesia - Nerve Block Performed Right iPack Single Time Out Performed: Yes Date of Procedure: 08/03/23 Procedure Start Time: 09:55 Procedure Stop Time: 10:02 Location of Patient: PreOp Indication: Acute Post-Operative Pain, Requested by Surgeon Sedation Type: Sedate with meaningful contact maintained Preparation: Sterile Prep Position: Left Lateral Needle Types: Pajunk Needle Gauge: 21 Ultrasound used to visualize needle placement: Yes Ultrasound used to observe medication spread: Yes Injectate: 0.5% Ropivacaine (see comment for volume) (15 ml + 15 ml NS +4 mg dexamethasone) Blood Aspirated: No Pain Paresthesia on Injection Noted: No Resistance on Injection: Normal Image Stored and Saved: Yes Events: Uneventful and Well Tolerated
[2023-08-03] MEDS ORDERED: PHENYLEPHRINE-0.9% NACL SYG 1,000 MCG/10 ML SYRINGE ONE (10:24)
[2023-08-03] MEDS ORDERED: SODIUM CHLORIDE 0.9% (PF) 10 ML VIAL ONE (10:24)
[2023-08-03] MEDS ORDERED: fentaNYL (PF) 50 MCG/ML 2 ML AMP ONE (10:24)
[2023-08-03] MEDS ORDERED: DEXAMETHASONE SOD PHOSPHATE 4 MG/ML 1 ML VIAL ONE (10:24)
[2023-08-03] MEDS ORDERED: ROPIVACAINE 5 MG/ML 30 ML VIAL ONE (10:24)
[2023-08-03] MEDS ORDERED: MIDAZOLAM 2 MG/2 ML VIAL ONE (10:24)
[2023-08-03] MEDS ORDERED: TRANEXAMIC 1,000 MG/100ML-NACL PREMIX BAG ONE (10:24)
[2023-08-03] MEDS ORDERED: PROPOFOL 10 MG/ML 20 ML VIAL IV ONE (10:24)
[2023-08-03] MEDS ORDERED: ceFAZolin 1,000 MG in SODIUM CHLORIDE 0.9% 1,000 ML IRRIGATION ONE (10:51)
[2023-08-03] MEDS ORDERED: HYDROmorphone 0.5 MG/0.5 ML SYRINGE IVP PRN ×2 (12:06)
[2023-08-03] MEDS ORDERED: NALOXONE 0.4 MG/ML 1 ML VIAL IV PRN (12:06)
[2023-08-03] MEDS ORDERED: MAGNESIUM HYDROXIDE 2,400 MG/30 ML CUP PO PRN (12:06)
[2023-08-03] MEDS ORDERED: traMADol 50 MG TAB PO PRN (12:06)
[2023-08-03] MEDS ORDERED: hydrOXYzine pamoate 25 MG CAP PO PRN (12:06)
--- NOTE | 2023-08-03 12:27 | P.OP ---
Date of Procedure: 08/03/23 Preoperative Diagnosis: Right knee severe tricompartmental osteoarthrosis Postoperative Diagnosis: Same Procedure(s) Performed: Right total knee arthroplastycementedposterior stabilized Implants: Depuy Attune size 6 narrow cemented femoral component, size 4 cemented tibial component, 9 mm articular surface, 32 mm cemented patellar component. This is a posterior stabilized implant. Anesthesia: regional, spinal Surgeon: Beau Martins Socket Welder Helper #1: Alec Saavedra Estimated Blood Loss (ml): 50 Pathology: none sent Condition: stable Disposition: PACU Indications for Procedure: The patient is a 67-year-old female who presents with progressive right knee pain secondary to osteoarthrosis despite conservative measures. After a thorough discussion of her options to include continued conservative measures versus surgical intervention, she opted to proceed with right total knee arthroplasty. Specific risks of surgery to include infection, neurovascular injury, fracture, possible component loosening/failure and need for subsequent procedures were discussed. Informed consent was obtained. Operative Findings: As below Description of Procedure: The patient was brought to the operating room, and after induction of spinal anesthesia the right lower extremity was prepped and draped in a normal fashion. The tourniquet was inflated to 270 mm marker. A longitudinal incision extending 3 finger breaths above the superior pole of patella extending to the medial aspect the tibial tubercle was then made. The skin and subcutaneous tissues were divided sharply. Electrocautery was used for hemostasis. A medial parapatellar arthrotomy was performed. The medial soft tissues to include the superficial and deep portions of the medial collateral ligament were elevated subperiosteally. The patella was everted. A portion of the retropatellar fat pad was excised sharply. The anterior cruciate ligament was sacrificed. Blunt retractors were placed. I did release the lateral collateral along with the popliteus from the lateral femoral upper condyle with electrocautery to help with soft tissue balancing. A starting hole was made in the distal femur 1 cm anterior to the posterior cruciate ligament origin. An intramedullary femoral guide was then inserted planning on 5 valgus distal cut with 9 mm distal resection. The cutting block was pinned in place. The distal cut was then made. The posterior referencing sizing guide was utilized. I felt size 6 narrow was most appropriate. 3 of external rotation was built into the system and verified off the trans-epicondylar axis and the posterior condyles. The cutting block was pinned in place. The anterior, posterior, and chamfer cuts then made. Bone fragments were removed. The intercondylar guide was placed and the notch cut was made with a sagittal saw. The bone block was removed in one fragment. The trial component was then placed. There is good anterior to posterior and medial to lateral fit. The distal peg holes were drilled. The trial component was removed. Attention was then paid towards preparing the proximal tibia. An extra medullary guide was utilized in line with the tibial shaft and second metatarsal distally. I planned on 2mm resection from the lateral compartment. The cutting block was pinned in place. The proximal tibial cut was then made. The bone was removed in one fragment. The remnants of the medial and lateral menisci were excised at the capsular junction with electrocautery. The tibia sized most appropriately at size 4. The trial femoral and tibial components were placed along with a 9 mm articular surface. I was able to obtain full flexion and extension with internal and external rotation. After several flexion and extension cycles, the tibial rotation was marked with electrocautery line with the medial one third of the tibial tubercle. Attention was then paid towards preparing the patella. A patella reamer was utilized taking stem to 14 mm of bone stock. A good flush cut was made. The patella sized most appropriately 32 mm. The peg holes were drilled. The trial components placed. I had good patellofemoral tracking with no hands technique. The trial components were then removed. The tibia was prepared in the appropriate rotation with appropriate drill and keel punch. The posterior osteophytes were removed with a curved osteotome. The flexion and extension gaps were checked and felt to be symmetric at 9 mm. A trial components were then removed. The bony surfaces were prepared with pulsatile lavage and dried. The tibial component was then cemented place was fully seated. Excess cement was removed. The femoral component cemented place and was fully seated. Excess cement was removed. The trial 9 mm articular surface was placed and the knee was put in full extension. The patella component was cemented place. After the cement had sufficiently hardened, the knee was again taken through a range of motion. Again I was able to obtain full flexion and extension with varus and valgus stress. The trial 9 mm articular surface was removed and the final one inserted. This was fully seated. Care was taken to avoid any soft tissue interposition. Pulsatile lavage was again utilized. The medial parapatellar arthrotomy was closed with #2 Ethibond suture. The tourniquet was deflated with approximately 60 minutes total tourniquet time. Final hemostasis was obtained with the cautery. There was minimal bleeding therefore a deep drain was not placed. The subcutaneous tissues were reapproximated with interrupted 2-0 Vicryl sutures. The skin was reapproximated with 3-0 subcuticular strata fix suture. Skin tape and adhesive was applied. A sterile dressing was applied. The patient was awoken from sedation and transferred to recovery room in good condition. Blood loss was estimated at [] mL. No complications were incurred. Sponge and needle counts were correct at the end of the case. Hossein CLOUD assisted during the major components of this case to include exposure, bone resection, implantation, and closure.
--- NOTE | 2023-08-03 12:50 | XR ---
EXAMINATION TYPE: XR knee limited RT DATE OF EXAM: 08/03/2023 COMPARISON: None HISTORY: Post knee replacement TECHNIQUE: 2 view right knee FINDINGS: Tibial and femoral components have been placed. No acute fractures are evident. Postsurgica l soft tissue changes are evident. IMPRESSION: 1. No acute fractures post knee prothesis revision
--- NOTE | 2023-08-03 16:57 | P.CONS ---
History of Present Illness - Reason for Consult Consult date: 08/03/23 - History of Present Illness Patient is a 67-year-old female with history of hypothyroidism presenting for elective total right knee arthroplasty. [facility] physicians has been consulted for medical management. Currently vital signs stable. No new labs available. Patient denies any chest pain, shortness of breath, abdominal pain, nausea, vomiting, urinary or bowel complaints. Pertinent positives and negatives as discussed in HPI, a complete review of systems was performed and all other systems are negative. Patient seen and examined at bedside. Vital signs reviewed General: nontoxic, no distress, appears at stated age Derm: warm, dry, knee dressing clean, dry, intact Head: atraumatic, normocephalic, symmetric Eyes: EOMI, no lid lag, anicteric sclera, pupils equal round reactive to light ENT: Nose and ears atraumatic Neck: No thyromegaly, supple Mouth: no lip lesion, mucus membranes moist Cardiovascular: S1S2 reg, no murmur, no edema Lungs: clear to auscultation bilateral, no rhonchi, no rales, no wheeze, no accessory muscle use Abdominal: soft, nontender to palpation, no guarding, no appreciable organomegaly Ext: no gross muscle atrophy, muscle strength muscle strength 5 out of 5 in all 4 extremities, no contractures Neuro: CN II-XII grossly intact Psych: Alert, oriented, appropriate affect Assessment/Plan: Hypothyroidism Status post right total knee arthroplasty -Continue levothyroxine 100 mcg daily -Pain control per orthopedics, on oral Amory as needed as well as IV Dilaudid as needed. Also on tramadol 50 mg as needed every 6 hours Anesthesia also following -xarelto 10 mg daily DVT prophylaxis -Senna 2 tabs at night for bowel regimen -CBC and BMP tomorrow Thank you for allowing us to participate in the care of this pleasant patient. Do not hesitate to contact us with questions. Someone can be reached from the [facility] hospitalist group all hours of the day at [phone] or via [employer]. 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 History of Any Multi-Drug Resistant Organisms: None Reported Past Surgical History: Breast Surgery, Orthopedic Surgery Additional Past Surgical History / Comment(s): FUAD TUMORS ON EAR DRUMS 1989., GANGLION CYST LEFT WRIST. BREAST AUGMENTATION., LEFT HIP FX REPAIR. 10/08/21 Past Anesthesia/Blood Transfusion Reactions: No Reported Reaction Smoking Status: Former smoker - Past Family History Mother Family Medical History: Cancer Additional Family Medical History / Comment(s): BREAST CANCER Father Family Medical History: Hypertension Sister(s) Family Medical History: Cancer Additional Family Medical History / Comment(s): BREAST CANCER Medications and Allergies Home Medications Medication Instructions Recorded Confirmed Type Levothyroxine Sodium 100 mcg PO DAILY 01/17/19 08/03/23 History Potassium Gluconate [Potassium 500 mg PO DAILY 07/30/23 08/03/23 History (2.5 MEQ = 600 MG)] Vitamin C, D & Zinc 1 dose PO DAILY 07/30/23 08/03/23 History Allergies Allergy/AdvReac Type Severity Reaction Status Date / Time No Known Allergies Allergy Verified 08/03/23 10:13 Physical Exam Vitals: Vital Signs Temp Pulse Resp BP Pulse Ox 08/03/23 14:15 59 L 16 116/66 97 08/03/23 13:45 52 L 16 128/64 98 08/03/23 13:15 51 L 16 119/66 99 08/03/23 13:00 55 L 16 127/67 97 08/03/23 12:45 59 L 16 128/67 98 08/03/23 12:30 65 16 121/64 97 08/03/23 12:23 66 16 115/61 96 08/03/23 10:13 64 16 106/58 94 L 08/03/23 09:18 98.5 F 70 16 95 Intake and Output 08/03/23 08/03/23 08/03/23 06:59 14:59 22:59 Intake Total 751 Output Total 50 Balance 701 Intake: IV 751 Output: Estimated Blood Loss 50 Other: Weight 84.1 kg 84.1 kg
[2023-08-03] MEDS: HYDROcodone/APAP 5-325MG 1 EACH TAB PO PRN ×2 (16:58→23:09)
[2023-08-03] MEDS ORDERED: SENNOSIDES-DOCUSATE SODIUM 1 EACH TAB PO SCH (21:00)
[2023-08-04] MEDS: LEVOTHYROXINE 100 MCG TAB PO SCH ×2 (05:58→07:42)
[2023-08-04] MEDS: HYDROcodone/APAP 5-325MG 1 EACH TAB PO PRN ×2 (06:05→11:08)
--- NOTE | 2023-08-04 07:12 | P.PN ---
Progress Note - Text Progress Note Date: 08/04/23 Postoperative day # 1 status post total knee arthroplasty, and adductor canal catheter placed for postoperative analgesia, currently at ropivacaine 0.2% 8 mL per hour and continuous infusion, visual analogue scale is 3/10, patient using oral pain medication for breakthrough pain. Assessment and plan= Acute postoperative pain, adductor canal catheter for pain control, pain is well controlled we'll continue the same management.
[2023-08-04] MEDS: LACTATED RINGERS 1,000 ML IV SCH (07:41)
--- NOTE | 2023-08-04 08:58 | P.DS ---
Providers Date of admission: 08/03/2023 Expected date of discharge: 08/04/23 Attending physician: Beau Martins Consults: 08/03/23 12:08 Consult Physician Routine Consulting Provider: London Diaz Consult Reason/Comments: Medical Management s/p right total knee arthroplasty Do you want consulting provider notified?: Yes [facility] Course: Date of admission: 08/03/2023 Date of discharge: 08/04/2023 Admission diagnosis: Right knee osteoarthritis Discharge diagnosis: Same Attending physician: Dr. Martisn Surgical procedures: Right total knee arthroplasty Brief history: Patient is a 67-year-old female with a history of progressive primary right knee osteoarthritis. At this point patient has failed conservative treatment measures and has opted to proceed with a elective right total knee arthroplasty. Hospital course: Details of patient's surgery can be found in operative report. Patient tolerated the procedure well and was subsequently transported to orthopedic floor. Patient's orthopeidc and medical care was provided daily. Patient had daily laboratory tests performed for evaluation of overall blood counts. Patient had daily physical therapy to include strengthening range of motion as well as education with walker ambulation. Patient was treated with Xarelto for their postoperative DVT prophylaxis during their inpatient stay. Patient was noted to have a relatively uneventful postoperative course. Patient reported satisfactory pain control with oral pain medications by postoperative day 1. Patient showed satisfactory progress with physical therapy. Patient moved steadily through the program and had no difficulty meeting the goals by postoperative day 1. Given patient's otherwise satisfactory course and having met physical therapy goals, plan is to discharge patient home with health services on postoperative day 1. Discharge condition/disposition: Patient will be discharged home with health services in stable condition. Discharge medications: Instructions are given on resumption of patient's normal daily medications per primary care recommendation, in addition patient will be prescribed [place]; senna; Eliquis 2.5 mg twice a day 2 weeks. Discharge instructions: 1. Wound care and infection precautions, keep incision dry and covered while showering, no lotions, creams, moisturizers. No soaking, tubs, pools, hottubs. Do not scrub over the incision. 2. Weight-bear as tolerated with walker / cane until follow-up. 3. Ice and elevate when necessary. Do not exceed 20 minutes per hour with ice pack. 4. Utilize compression sleeve until seen at first follow up appointment. 5. Visiting nursing care. 6. Home physical therapy including home CPM. 7. Pain meds and anticoagulants per prescription. 8. Pain medication has potential to cause constipation. Increase oral fluid and fiber intake. Contact primary care provider if you have not had a bowel movement within 48 hours after discharge 9. No anti-inflammatory medication until discussed at first post operative visit, this including Motrin, Aleve, Mobic, Diclofenac. 10. Follow up in office at 2 weeks postop with Hossein Saavedra PA-C / Scotty Portillo PA-C 11. Follow up with your primary care doctor 7-10 days after discharge. 12. Contact [facility] with any questions, . Assessment: Right knee osteoarthritis Procedures: Right total knee arthroplasty Patient Condition at Discharge: Good Plan - Discharge Summary Discharge Rx Participant: Yes New Discharge Prescriptions: New Apixaban [Eliquis] 2.5 mg PO BID #60 tab HYDROcodone/APAP 5-325MG [[place] 5-325] 1 - 2 tab PO Q6HR PRN #36 tab PRN Reason: Pain Sennosides/Docusate Sodium [Senna Plus 8.6-50 mg Softgel] 1 each PO DAILY #20 capsule No Action Levothyroxine Sodium 100 mcg PO DAILY Vitamin C, D & Zinc 1 dose PO DAILY Potassium Gluconate [Potassium (2.5 MEQ = 600 MG)] 500 mg PO DAILY Discharge Medication List Levothyroxine Sodium 100 mcg PO DAILY 01/17/19 [History] Potassium Gluconate [Potassium (2.5 MEQ = 600 MG)] 500 mg PO DAILY 07/30/23 [History] Vitamin C, D & Zinc 1 dose PO DAILY 07/30/23 [History] Apixaban [Eliquis] 2.5 mg PO BID #60 tab 08/04/23 [Rx] HYDROcodone/APAP 5-325MG [[place] 5-325] 1 - 2 tab PO Q6HR PRN #36 tab 08/04/23 [Rx] Sennosides/Docusate Sodium [Senna Plus 8.6-50 mg Softgel] 1 each PO DAILY #20 capsule 08/04/23 [Rx] Follow up Appointment(s)/Referral(s): Scotty Portillo, PENNY [PHYSICIAN BEE PRODUCER] - 2 Weeks Patient Instructions/Handouts: Knee Replacement (DC), Knee Replacement (GEN) Activity/Diet/Wound Care/Special Instructions: Orthopedic Discharge Instructions: 1. Wound care and infection precautions, keep incision dry and covered while showering, no lotions, creams, moisturizers. No soaking, pools, hot tubs. Do not scrub over incision. 2. Weight-bear as tolerated with walker / cane until follow-up. 3. Ice and elevate when necessary. Do not exceed 20 minutes per hour with ice pack. 4. Utilize compression sleeve until seen at first follow up appointment. 5. Pain meds and anticoagulants per prescription. 6. Pain medication has potential to cause constipation. Increase oral fluid and fiber intake. Contact primary care provider if you have not had a bowel movement within 48 hours after discharge. 7. No anti-inflammatory medication until discussed at first post operative visit, this including Motrin, Aleve, Mobic, Diclofenac. 8. Follow up in office at 2 weeks postop with Hossein Saavedra PA-C / Scotty Portillo PA-C 9. Follow up with your primary care doctor 7-10 days after discharge. 10. Contact [facility] with any questions, . Keep incision clean, dry, intact. While showering, cover fusion tape with Saran wrap. Keep fusion tape on until follow-up appointment in office at 2 weeks Discharge Disposition: HOME WITH HOME HEALTH SERVICES
[2023-08-04] MEDS ORDERED: RIVAROXABAN 10 MG TAB PO SCH (09:00)
[2023-08-04] MEDS ORDERED: LEVOTHYROXINE 100 MCG TAB PO SCH (09:00)
[2023-08-04 09:07] VITALS: BP 105/54; PULSE 72; TEMP 98
--- NOTE | 2023-08-04 09:14 | P.PN ---
Subjective Progress Note Date: 08/04/23 Principal diagnosis: Right knee osteoarthritis Patient seen at bedside this morning lying semirecumbent position with dressing over right knee. Patient says she did do well with physical therapy and walked up and down steps and into the hallway. Patient says she is looking forward to going home later today. Patient says she does have a walker at home. Patient says she has urinated several times since surgery yesterday. Patient denies any other issues at this time. Patient denies chest pain, fever, shortness of breath, nausea, vomiting, change in vision, loss of bowel/bladder control. Objective - Vital Signs Vital signs: Vital Signs Temp 97.4 F L 08/04/23 00:40 Pulse 68 08/04/23 00:40 Resp 16 08/04/23 00:40 BP 119/64 08/04/23 00:40 Pulse Ox 94 L 08/04/23 00:40 FiO2 Intake & Output 08/03/23 08/04/23 08/04/23 18:59 06:59 18:59 Intake Total 751 Output Total 50 Balance 701 Weight 84.1 kg Intake: IV 751 Output: Estimated Blood Loss 50 Other: Voiding Method Toilet # Voids 0 3 - Exam Right knee: Incision is clean, dry, and intact. The exofin fusion tape is in good condition. There is minimal soft tissue swelling and ecchymosis surrounding the medial and lateral aspects of the incision. Calf is soft, no tenderness with palpation. Plantar flexion, dorsiflexion, EHL, FHL are intact. Sensory exam to light touch throughout the extremity is intact, dorsal pedis pulses 2+. Assessment and Plan Assessment: 1. Right knee osteoarthritis - Postoperative day #1 status post right total knee arthroplasty Plan: 1. Right knee osteoarthritis - right total knee arthroplasty performed yesterday, 07/26/2023. Patient stable sets morning. Patient does have a walker at home. Patient did do well with therapy. Discharge home today with health services 2. Appreciate medical management 3. Pain management - Nathalie; tramadol 4. DVT prophylaxis - Xarelto in hospital. Going home with eliquis 2.5mg twice a day 2 weeks 5. GI prophylaxis - senna 6. PT/OT - weightbearing as tolerated with walker 7. Encourage incentive spirometer use 8. Discharge planning - Discharge home today with health services Time with Patient: Less than 30
--- NOTE | 2023-08-04 11:07 | P.PN ---
Subjective Progress Note Date: 08/04/23 Subjective: Patient seen and examined at bedside. No acute events overnight. Pertinent positives and negatives as discussed above, a complete review of systems was performed and all other systems are negative. Vitals Signs Reviewed. General: nontoxic, no distress, appears at stated age Derm: warm, dry, dressing clean, dry, intact Head: atraumatic, normocephalic, symmetric Eyes: EOMI, no lid lag, anicteric sclera Mouth: no lip lesion, mucus membranes moist Cardiovascular: S1S2 reg, no murmur Lungs: CTA bilateral, no rhonchi, no rales , no accessory muscle use Abdominal: soft, nontender to palpation, no guarding, no appreciable organomegaly Ext: no gross muscle atrophy, no edema, no contractures Neuro: CN II-XI grossly intact, no focal neuro deficits Psych: Alert, oriented, appropriate affect Data Reviewed Today: Pertinent Labs: BMP and CBC pending, will be reviewed when available Imaging: No new imaging Assessment and Plan: Hypothyroidism Status post right total knee arthroplasty -Continue levothyroxine 100 mcg daily -Pain control per orthopedics, on oral Show Low as needed as well as IV Dilaudid as needed. Also on tramadol 50 mg as needed every 6 hours Anesthesia also following -xarelto 10 mg daily DVT prophylaxis -Senna 2 tabs at night for bowel regimen Patient is medically optimized for discharge home. Thank you for allowing us to participate in the care of this pleasant patient. Do not hesitate to contact us with questions. Someone can be reached from the [facility] hospitalist group all hours of the day at [phone] or via perfect serve. Objective - Vital Signs Vital signs: Vital Signs Temp 98.0 F 08/04/23 07:40 Pulse 72 08/04/23 07:40 Resp 16 08/04/23 07:40 BP 105/54 08/04/23 07:40 Pulse Ox 93 L 08/04/23 07:40 FiO2 Intake & Output 08/03/23 08/04/23 08/04/23 18:59 06:59 18:59 Intake Total 751 Output Total 50 Balance 701 Weight 84.1 kg Intake: IV 751 Output: Estimated Blood Loss 50 Other: Voiding Method Toilet # Voids 0 3
[2023-08-04 11:21] LABS: BUN/Creat Ratio 24.57 Ratio (12.00-20.00); Blood Urea Nitrogen 17.2 mg/dL (9.0-27.0); Calcium 9.1 mg/dL (8.7-10.3); Carbon Dioxide 23.3 mmol/L (21.6-31.8); Chloride 104 mmol/L (96-109); Glucose 156 mg/dL (70-110); Potassium 4.2 mmol/L (3.5-5.5); Sodium 140 mmol/L (135-145)
[2023-08-04 11:44] LABS: Basophils # (A) 0.02 X 10*3/uL (0.00-0.10); Basophils % (A) 0.1 %; Eosinophils # (A) 0.02 X 10*3/uL (0.04-0.35); Eosinophils % (A) 0.1 %; HCT 35.4 % (37.2-46.3); HGB 11.4 g/dL (12.0-15.0); Lymphocytes # (A) 1.72 X 10*3/uL (0.90-5.00); Lymphocytes % (A) 12.8 %; MCH 28.7 pg (27.0-32.0); MCHC 32.2 g/dL (32.0-37.0); MCV 89.2 FL (80.0-97.0); Mean Platelet Volume 11.3 FL (9.5-12.2); Monocytes # (A) 1.33 X 10*3/uL (0.20-1.00); Monocytes % (A) 9.9 %; NRBC Per 100 WBC 0 X 10*3/uL (0.00-0.01); Neutrophils # (A) 10.25 X 10*3/uL (1.80-7.70); Neutrophils % (A) 76.7 %; Platelet Count 211 X 10*3/uL (140-440); RBC 3.97 X 10*6/uL (4.10-5.20); RBC Morphology Normal (Normal); RDW 13.2 % (11.5-14.5); WBC 13.39 X 10*3/uL (4.50-10.00)
== END 2023-08-04 13:02 | disposition home health service (06) ==
LOC: OR 08:33 → 4SSUR 12:18 → OR 08-04 13:02
PROVIDERS: ATTEND Orthopaedic Surgery
DX: M17.11 Unilateral primary osteoarthritis, right knee (principal); E07.9 Disorder of thyroid, unspecified; Z85.72 Personal history of non-Hodgkin lymphomas; F41.9 Anxiety disorder, unspecified; Z87.891 Personal history of nicotine dependence; Z80.3 Family history of malignant neoplasm of breast; Z79.890 Hormone replacement therapy; Z79.899 Other long term (current) drug therapy; Z88.5 Allergy status to narcotic agent; G89.18 Other acute postprocedural pain
CPT/HCPCS: 97161; 64999; 64448; 80048; 85025; 73560; 27447; C1713 ×2; C1776; C1751; J2250; J1100; J0690 ×3; J2405; J3010; J2795

== ENCOUNTER → 2024-01-18 | Outpatient (CLI) | payer MEDICARE, BC ==
--- NOTE | 2024-01-18 16:05 | XR ---
EXAMINATION TYPE: XR cervical spine 4 views comp DATE OF EXAM: 01/18/2024 COMPARISON: None HISTORY: 68-year-old female [id number], cervicalgia FINDINGS: No predental space widening or prevertebral soft tissue swelling. Some degenerative change at the C1 dens articulation. There is degenerative facet spurring and uncovertebral joint arthropathy especiall y mid to lower cervical spine. On the left, possible moderate to severe bony neural foraminal narrowi ng C5-C6 and C6-C7, moderate C4-C5. Mild bony neuroforaminal narrowing mid to lower cervical spine on the right. Limited odontoid view. Alignment is maintained. IMPRESSION: Facet and uncovertebral joint arthropathy, greater towards the left. Possible moderate to severe bony neural foraminal narrowing on the left at C5-C6 and C6-C7. No malalignment seen.
== END | disposition home or self-care (01) ==
LOC: RADXRYALE 14:26
PROVIDERS: ATTEND Physician Assistant
DX: M47.812 Spondylosis without myelopathy or radiculopathy, cervical region (principal)
CPT/HCPCS: 72050

== ENCOUNTER → 2024-03-01 | Outpatient (CLI) | payer MEDICARE ==
--- NOTE | 2024-03-01 14:20 | MR ---
EXAMINATION TYPE: MR cervical spine wo con DATE OF EXAM: 03/01/2024 12:07 PM COMPARISON: NONE HISTORY: Neck pain, stiffness x 3 mos. Multiplanar MultiSpin echo imaging of the cervical spine was performed. Comparison: none C2-C3: No evidence for degenerative disc disease. No disc bulge/herniation or protrusion. No Canal stenosis. Foramina are patent bilaterally. C3-C4: Mild degenerative disc space narrowing posterior disc bulge. Hypertrophic changes noted mild c onstriction of the thecal sac however no definite central stenosis. Degenerative change of the bilate ral cervical apophyseal joints resulting in right greater than left foraminal encroachment. C4-C5: Mild to moderate degenerative disc space narrowing posterior disc bulge. Hypertrophic changes noted mild constriction of the thecal sac with mild central stenosis. Degenerative change of the bila teral cervical apophyseal joints resulting in bilateral neural foraminal encroachment. C5-C6: Moderate degenerative disc space narrowing posterior disc bulge. Hypertrophic changes noted mi ld constriction of the thecal sac with mild central stenosis. Degenerative change of the bilateral ce rvical apophyseal joints resulting in bilateral neural foraminal encroachment. C6-C7: Mild degenerative disc space narrowing posterior disc bulge. Hypertrophic changes noted mild c onstriction of the thecal sac however no definite central stenosis. Degenerative change of the bilate ral cervical apophyseal joints resulting in right greater than left foraminal encroachment. C7-T1: No evidence for degenerative disc disease. No disc bulge/herniation or protrusion. No Canal stenosis. Foramina are patent bilaterally. Cervical segments are intact. There is normal alignment. Cervical spinal cord is of normal signal. Craniovertebral junction relationships are within normal limits. IMPRESSION: 1. Multilevel degenerative disc disease and multilevel central stenosis and foraminal encroachment as outlined above.
== END | disposition home or self-care (01) ==
LOC: RADMRIMAIN 11:34
PROVIDERS: ATTEND Family Medicine
DX: M50.30 Other cervical disc degeneration, unspecified cervical region (principal); M48.02 Spinal stenosis, cervical region; M54.12 Radiculopathy, cervical region
CPT/HCPCS: 72141

== ENCOUNTER → 2024-08-22 | Outpatient (CLI) | payer MEDICARE ==
[2024-08-22 10:19] LABS: African American GFR (CKD) >90 (>60 ml/min/1.73 sqM); Blood Urea Nitrogen 14 mg/dL (7-17); Non-African American GFR(CKD) 84 (>60 ml/min/1.73 sqM)
--- NOTE | 2024-08-22 15:07 | CT ---
EXAMINATION TYPE: CT ChestAbdPelvis w con CT DLP: 1278.90 mGycm, Automated exposure control for dose reduction was used. DATE OF EXAM: 08/22/2024 12:01 PM COMPARISON: Acute abdominal series 11/16/2021 CLINICAL INDICATION:Female, 68 years old with history of R19.00 INTRA-ABD AND PELVIC SWELLING, MASS A ND LUM; PHH, Intra abdominal pelvic swelling, mass, pt hx ovarian ca Technique: Multiple axial images of the chest, abdomen, and pelvis were obtained following the intrav enous administration of 100 mL Isovue-300. Oral contrast was administered. Two-dimensional coronal an d sagittal reconstructions were obtained. Findings: CHEST: LUNGS/ PLEURA: No pleural effusion, pneumothorax, focal consolidation. Linear scarring within the rig ht middle lobe. No suspicious pulmonary nodule or mass. AIRWAY: Patent and unremarkable.. HEART: Size within normal limits.No pericardial effusion. MEDIASTINUM: No evidence of adenopathy. VASCULATURE: No aortic aneurysm. MUSCULOSKELETAL: No acute osseous abnormalities. SOFT TISSUES/LYMPH NODES: Bilateral peripherally calcified breast prosthesis with evidence of intraca psular rupture bilaterally. LOWER NECK: No significant findings. ABDOMEN: ABDOMEN LIVER: No focal lesion. Elongated appearance of the right hepatic lobe measuring 24.4 cm in CC dimens ion and may represent a Jocelyn's lobe variant GALLBLADDER AND BILE DUCTS: Unremarkable. PANCREAS: Unremarkable. SPLEEN: Unremarkable. ADRENAL GLANDS: Unremarkable. KIDNEYS AND URETERS: No evidence of hydronephrosis or renal calculus. The kidneys enhance symmetrical ly. Contrast is demonstrated within both collecting systems on the delayed phase. PELVIS BLADDER: Incompletely distended but grossly unremarkable. REPRODUCTIVE: Bilateral ovarian cystic lesions with left ovarian heterogenous soft tissue. The right cystic lesion measuring 4.9 x 4.0 cm. The left heterogenous lesion measuring 10.0 x 5.5 cm. Calcifica tions identified within the uterine myometrium probably representing fibroid changes. ABDOMEN & PELVIS STOMACH AND BOWEL: Stomach and duodenum are unremarkable. The appendix is within normal limits. Dista l colonic diverticulosis without evidence for acute diverticulitis. Enteric contrast reaches the ileo cecal junction. No evidence of bowel obstruction. PERITONEUM: No evidence of pneumoperitoneum or free fluid. VASCULATURE: Mild atherosclerotic calcifications are present throughout the abdominal aorta and its b ranches. No abdominal aortic aneurysm. MUSCULOSKELETAL: No acute osseous abnormalities. Fixation hardware involving the left proximal femur. Prominent Schmorl's node involving the superior endplate of the L2 vertebral body. LYMPH NODES: No evidence for lymphadenopathy. SOFT TISSUE/ABDOMINAL WALL: Unremarkable IMPRESSION: 1. Bilateral indeterminate ovarian lesions with left greater than right. Likely represents reported ovarian cancer. Correlation with prior imaging is recommended. Otherwise consider further evaluation with pelvic ultrasound for further characterization. 2. No lymphadenopathy within the chest, abdomen or pelvis. 3. No suspicious pulmonary nodules. [facility], , 08/22/2024 3:04 PM
== END | disposition home or self-care (01) ==
LOC: RADCTMAIN 09:38
PROVIDERS: ATTEND Obstetrics & Gynecology
DX: R19.00 Intra-abdominal and pelvic swelling, mass and lump, unspecified site (principal); I70.0 Atherosclerosis of aorta; K57.30 Diverticulosis of large intestine without perforation or abscess without bleeding
CPT/HCPCS: 82565; 84520; 71260; 74177; 36415; Q9967

== ENCOUNTER → 2024-11-29 | Outpatient (CLI) | payer MEDICARE ==
--- NOTE | 2024-11-29 11:59 | MM ---
Reason for Exam: Hx of breast augmentation, asymptomatic. Last mammogram was performed 2 year(s) and 8 month(s) ago. Patient History: Menarche at age 10. Patient has no children. Postmenopausal. Other cancer, age 47. Previous chemotherapy at age 49. 2013, MG stereo VAD BX RT on the Right side. 1978, Bilateral Implants. Sister had breast cancer, age 45. Mother had breast cancer, age 55. Risk Values: Digna 5 year model risk: 7.7%. NCI Lifetime model risk: 20.8%. Prior Study Comparison: 07/20/2013 Bilateral Diagnostic Mammogram, [facility]. 03/19/2022 Bilateral MG 3D diag mammo imp w/cad FUAD, [facility]. Tissue Density: There are scattered areas of fibroglandular density. Findings: Analyzed By CAD. There is no suspicious group of microcalcifications or new suspicious mass in either breast. Surgical clip in the right breast. Note is made displaced views could not be obtained as noted by the technologist due to the calcified implants. Overall Assessment: Benign, BI-RAD 2 Management: Screening Mammogram of both breasts in 1 year. . Patient should continue monthly self-breast exams. A clinical breast exam by your physician is recommended on an annual basis. This exam should not preclude additional follow-up of suspicious palpable abnormalities. Note on Digna scores and lifetime risk: 1. A Digna score greater than 3% is considered moderate risk. If this is the case, consider specialist referral to assess eligibility for a risk reducing agent. 2. If overall lifetime risk for the development of breast cancer is 20% or higher, the patient may qualify for future screening with alternating mammogram and breast MRI. [facility], , 11/29/2024 11:56 AM. Electronically signed and approved by: Julio Ely M.D. Radiolog[facility]
== END | disposition home or self-care (01) ==
LOC: RADMAMWWP 10:39
PROVIDERS: ATTEND Obstetrics & Gynecology
DX: Z12.31 Encounter for screening mammogram for malignant neoplasm of breast (principal); C56.3 Malignant neoplasm of bilateral ovaries; R92.323 Mammographic fibroglandular density, bilateral breasts; Z78.0 Asymptomatic menopausal state; Z98.82 Breast implant status; Z80.3 Family history of malignant neoplasm of breast; Z87.891 Personal history of nicotine dependence
CPT/HCPCS: 77063; 77067

== ENCOUNTER → 2025-01-09 | Outpatient (CLI) | payer MEDICARE | END | disposition home or self-care (01) | LOC: LABWHC1 11:02 | PROVIDERS: ATTEND Obstetrics & Gynecology | DX: C56.3 Malignant neoplasm of bilateral ovaries (principal); Z87.891 Personal history of nicotine dependence | CPT/HCPCS: 36415; 86304 ==

== ENCOUNTER → 2025-04-02 | Outpatient (CLI) | payer MEDICARE | END | disposition home or self-care (01) | LOC: LABWHC1 10:04 | PROVIDERS: ATTEND Obstetrics & Gynecology | DX: C56.3 Malignant neoplasm of bilateral ovaries (principal); Z87.891 Personal history of nicotine dependence | CPT/HCPCS: 36415; 86304 ==